=== PATIENT | male | born 1960 | race Caucasian/White ===

== ENCOUNTER → 2019-07-05 | Outpatient (CLI) | payer OTHER | LOC: M.CT 12:57 | DX: I10 Essential (primary) hypertension (principal); I25.10 Atherosclerotic heart disease of native coronary artery without angina pectoris ==

== ENCOUNTER → 2019-07-05 | Outpatient (CLI) | payer BC | LOC: M.RAD 13:06 | DX: M25.562 Pain in left knee (principal); G89.29 Other chronic pain ==

== ENCOUNTER 2020-09-14 11:05 | Inpatient (IN) | payer BC ==
[2020-09-14] VITALS (14 sets, daily range): BP systolic 92–140; BP diastolic 56–81
[~2020-09-14] VITALS: Ht 188 cm; Wt 128.8 kg
[2020-09-14] MEDS ORDERED: NORVASC5 MG PO (11:32)
[2020-09-14] MEDS ORDERED: LISINOPRIL20 MG PO (11:32)
[2020-09-14 11:49] LABS: ABSOLUTE LYMPHOCYTES 0.7 thou/uL (0.8-5.3); ABSOLUTE MONOCYTES 0.3 thou/uL (0.0-1.2); ABSOLUTE NEUTROPHILS 3.8 thou/uL (1.6-8.1); BASOPHILS 0.3 %; HEMATOCRIT 43.7 % (42.0-52.0); LYMPHOCYTES 13.5 %; MCH 32.1 pg (26.0-34.0); MCHC 34.4 g/dL (28.0-37.0); MCV 93.2 fL (80.0-100.0); MONOCYTES 6.8 %; MPV 8.2 fl. (7.2-11.1); NUCLEATED RBCS 0 /100WBC; PLATELET COUNT* 153 thou/uL (150-400); POLYS 79.4 %; RBC 4.69 mil/uL (4.50-6.00); RDW-CV 13.5 % (10.5-14.5); WBC 4.8 thou/uL (4.0-11.0)
[2020-09-14 11:53] LABS: BE -0.6 mmol/L (-2 to +3); PCO2 28.9 mmHg (35.0-45.0); PO2 63.4 mmHg (75.0-100.0); pH 7.488 (7.340-7.450)
[2020-09-14 11:58] LABS: CALCIUM 7.9 mg/dL (8.5-10.1); CREATININE 1.2 mg/dL (0.6-1.3); POTASSIUM 4.5 mmol/L (3.5-5.1)
[2020-09-14 12:10] LABS: ALBUMIN 2.8 g/dL (3.4-5.0); TOTAL BILIRUBIN 0.6 mg/dL (<0.1-1.0); TOTAL PROTEIN 7.5 g/dL (6.4-8.2)
--- NOTE | 2020-09-14 13:41 | EKG ---
[place] [address] ELECTROCARDIOGRAM REPORT Name: TANIA SIMON Room: [place] [address] [facility]#: [id number] Admission: 09/14/20 Attend Phys: Elisabeth Bustamante, Discharge: Date of : 64 Date of Service: 09/14/20 1137 Report #: [id number] THIS REPORT FOR: //name// [facility] ED Test Date: 2020-09-14 Test Time: 11:37:36 Pat Name: TANIA SIMON Department: Room: [facility] Gender: M First Sampler: LAURA : 1960 Requested By: Sri Peterson Order Number: [id number] MD: Jesse Landry Measurements Intervals [place] Rate: 99 P: 18 OR: 140 QRS: -117 QRSD: 134 T: 15 QT: 346 QTc: 444 Interpretive Statements Sinus rhythm RBBB and LAFB No previous ECG available for comparison Electronically Signed On 09-14-2020 13:40:58 CDT by Jesse Landry [email or web address] <ELECTRONICALLY SIGNED> By: Jesse Landry MD, [facility] 09/14/20 1340 1137 1137 Jesse Landry MD, [facility] /EPI
[2020-09-14 14:53] LABS: BE -3.2 mmol/L (-2 to +3); PCO2 30.5 mmHg (35.0-45.0); PO2 89.1 mmHg (75.0-100.0)
[2020-09-14 16:08] LABS: APTT 30.8 Seconds (25.0-31.3); PROTIME 10.6 Seconds (9.20-11.50)
[2020-09-15] VITALS (25 sets, daily range): BP systolic 88–133; BP diastolic 39–74
[2020-09-15 03:23] LABS: ABSOLUTE LYMPHOCYTES 0.6 thou/uL (0.8-5.3); ABSOLUTE MONOCYTES 0.2 thou/uL (0.0-1.2); BASOPHILS 0.3 %; HEMATOCRIT 42.8 % (42.0-52.0); HEMOGLOBIN 14.4 gm/dL (14.0-18.0); LYMPHOCYTES 14.6 %; MCH 31.7 pg (26.0-34.0); MCHC 33.6 g/dL (28.0-37.0); MCV 94.3 fL (80.0-100.0); MONOCYTES 6.3 %; MPV 9.1 fl. (7.2-11.1); NUCLEATED RBCS 0 /100WBC; PLATELET COUNT* 155 thou/uL (150-400); POLYS 78.8 %; RBC 4.54 mil/uL (4.50-6.00); RDW-CV 13.8 % (10.5-14.5); WBC 3.8 thou/uL (4.0-11.0)
[2020-09-15 03:41] LABS: ALBUMIN 2.5 g/dL (3.4-5.0); CALCIUM 7.6 mg/dL (8.5-10.1); CREATININE 1.1 mg/dL (0.6-1.3); POTASSIUM 4.7 mmol/L (3.5-5.1); TOTAL BILIRUBIN 0.5 mg/dL (<0.1-1.0); TOTAL PROTEIN 7.2 g/dL (6.4-8.2)
--- NOTE | 2020-09-15 09:56 | NUR ---
WOUND NURSE: PATIENT SEEN TO ADDRESS WOUND ON THE PLANTAR SURFACE OF THE LEFT GREAT TOE. MEASURES 1.0 X 0.7 X 1.0 CM. RED, NONGRANULATING TISSUE IN THE WOUND BED. SEROUSANGUINOUS DRAINAGE, SMALL AMOUNT. PERIWOUND TISSUE HEAVILY CALLOUSED. NO PERIWOUND REDNESS, WARMTH, OR INDURATION. PATIENT STATES WOUND STARTED THE RESULT OF A ROCK IN HIS SHOE. PATIENT INSTRUCTED ON MEASURES TO PROMOTE HEALING AND PREVENT COMPLICATIONS WITH GOOD UNDERSTANDING ACHIEVED.
--- NOTE | 2020-09-15 15:07 | 2DMMODE ---
[place] [address] 2 D/M-MODE ECHOCARDIOGRAM Name: TANIA SIMON Room: 001[facility] IN [facility]#: [id number] Admission: 09/14/20 Attend Phys: Elisabeth Bustamante, Discharge: Date of : 64 Date of Service: 09/15/20 1507 Report #: [id number] THIS REPORT FOR: cc: Garrett Casiano Adam J DO Biggs, F. Douglas MD [facility] ~ APPROVED REPORT Study performed: 09/15/2020 10:36:19 EXAM: Comprehensive 2D, Doppler, and color-flow Echocardiogram Patient Location: In-Patient Room #: 001 Status: routine BSA: 2.71 HR: 78 bpm BP: 110/65 mmHg Rhythm: NSR Other Information Study Quality: Good Indications Dyspnea 2D Dimensions IVSd: 14.42 (7-11mm) LVOT Diam: 22.15 (18-24mm) LVDd: 51.63 mm PWd: 11.39 (7-11mm) Ascending Ao: 34.94 (22-36mm) LVDs: 28.74 (25-40mm) Aortic Root: 36.40 mm Volumes Left Atrial Volume (Systole) LA ESV Index: 20.70 mL/m2 Aortic Valve AoV Peak Morris.: 1.30 m/s AO Peak Gr.: 6.71 mmHg LVOT Max P.14 mmHg AO Mean Gr.: 3.70 mmHg LVOT Mean P.75 mmHg LVOT Max V: 1.24 m/s AO V2 VTI: 24.39 cm LVOT Mean V: 0.75 m/s JENI (VTI): 3.85 cm2 LVOT V1 VTI: 24.37 [place] [address] 2 D/M-MODE ECHOCARDIOGRAM Name: TANIA SIMON Room: [address] IN ..#: [id number] Admission: 09/14/20 Attend Phys: Elisabeth Bustamante, Discharge: Date of : 64 Date of Service: 09/15/20 1507 Report #: [id number] Mitral Valve E/A Ratio: 1.81 MV Decel. Time: 169.90 ms MV E Max Morris.: 0.88 m/s MV PHT: 49.27 ms MVA (PHT): 4.47 cm2 TDI E/Lateral E': 6.29 E/Medial E': 6.77 Medial E' Morris.: 0.13 m/s Lateral E' Morris.: 0.14 m/s Pulmonary Valve PV Peak Morris.: 0.85 m/s PV Peak Gr.: 2.87 mmHg Tricuspid Valve RAP Estimate: 5.00 mmHg TR Peak Gr.: 28.53 mmHg RVSP: 33.00 mmHg PA Pressure: 33.00 mmHg Left Ventricle The left ventricle is normal size. There is normal LV segmental wall motion. Mild concentric left ventricular hypertrophy. Left ventricular systolic function is normal. The left ventricular ejection fraction is within the normal range. LVEF is 55-60%. The left ventricular diastolic function is normal. Right Ventricle Right ventricle is dilated. The right ventricular systolic function is normal. Atria The left atrium size is normal. Right atrium is dilated. Aortic Valve The aortic valve is normal in structure. No aortic regurgitation is present. There is no aortic valvular stenosis. Mitral Valve The mitral valve is normal in structure. There is no mitral valve regurgitation noted. No evidence of mitral valve stenosis. Tricuspid Valve The tricuspid valve is normal in structure. Trace tricuspid regurgitation. [place] [address] 2 D/M-MODE ECHOCARDIOGRAM Name: TANIA SIMON Isi Room: [address] IN [facility]#: [id number] Admission: 09/14/20 Attend Phys: Elisabeth Bustamante, Discharge: Date of : 64 Date of Service: 09/15/20 1507 Report #: [id number] Pulmonic Valve The pulmonary valve is normal in structure. There is no pulmonic valvular regurgitation. Great Vessels The aortic root is normal in size. IVC is normal in size and collapses >50% with inspiration. Pericardium There is no pericardial effusion. <Conclusion> LVEF is 55-60%. The left ventricular diastolic function is normal. Mild concentric left ventricular hypertrophy. The left ventricle is normal size. There is normal LV segmental wall motion. The aortic valve is normal in structure. The mitral valve is normal in structure. Trace tricuspid regurgitation. Mild pulmonary hypertension. <ELECTRONICALLY SIGNED> By: Orly Robles MD, [facility] 09/15/20 1507 1507 1507 Orly Robles MD, FACC /INF
--- NOTE | 2020-09-15 15:35 | NUR ---
cm s/w with pt's , as pt is on covid isolation precautions. pt lives home with . pt is active and employeed. pt is independent with adls. pt covid "symptoms" presented "a week ago." pt has a cpap machine at home; however, pt's indicated, "has not used it in a long time." pt is currently on bipap 100% fio2. pt has no hx with or snf. pt had knee sx 2 to 3 weeks ago.
[2020-09-16] VITALS (24 sets, daily range): BP systolic 104–136; BP diastolic 51–79
[2020-09-16 03:39] LABS: HEMATOCRIT 41.7 % (42.0-52.0); HEMOGLOBIN 14.3 gm/dL (14.0-18.0); MCHC 34.2 g/dL (28.0-37.0); MCV 93.5 fL (80.0-100.0); MPV 8.6 fl. (7.2-11.1); NUCLEATED RBCS 0 /100WBC; PLATELET COUNT* 215 thou/uL (150-400); RBC 4.46 mil/uL (4.50-6.00); RDW-CV 13.6 % (10.5-14.5); WBC 8.1 thou/uL (4.0-11.0)
[2020-09-16 03:52] LABS: ALBUMIN 2.3 g/dL (3.4-5.0); CALCIUM 8.6 mg/dL (8.5-10.1); CREATININE 1.3 mg/dL (0.6-1.3); MAGNESIUM 2.1 mg/dL (1.8-2.4); POTASSIUM 4.3 mmol/L (3.5-5.1); TOTAL BILIRUBIN 0.5 mg/dL (<0.1-1.0); TOTAL PROTEIN 6.6 g/dL (6.4-8.2)
[2020-09-16 06:19] LABS: ABSOLUTE LYMPHOCYTES 1.1 thou/uL (0.8-5.3); ABSOLUTE MONOCYTES 0.2 thou/uL (0.0-1.2); ABSOLUTE NEUTROPHILS 6.8 thou/uL (1.6-8.1); PLATELET ESTIMATE ADEQUATE
[2020-09-16 06:20] LABS: ANISOCYTOSIS 1+; POIKILOCYTOSIS 1+
[2020-09-16 07:09] LABS: GLYCOHEMOGLOBIN (HGB A1C) 6.6 % (4.8-5.6)
--- NOTE | 2020-09-16 14:50 | NUR ---
ICU Rounds: Completed DPOA paperwork for patient with nursing. Patient designated his (Suzette) as DPOA. Patient currently uses bipap (FiO2 95%) and 100% heated high flow interchangeably. Possible need for intubation which is why DPOA paperwork was completed. Copy on chart and in patient's room. Continued steroids and abx. 1 of 4 doses of remdesevir given. 2nd dose to be given today. updated on plan of care. asked for an update on if patient is prediabetic or has Type 2 DM. Nursing to reach out to for further discussion with doctor. CM to continue to follow
[2020-09-16 15:31] LABS: CALCIUM 8.7 mg/dL (8.5-10.1); CREATININE 1.3 mg/dL (0.6-1.3); POTASSIUM 4.8 mmol/L (3.5-5.1)
[2020-09-17] VITALS (24 sets, daily range): BP systolic 102–140; BP diastolic 43–85
[2020-09-17 03:37] LABS: ABSOLUTE LYMPHOCYTES 0.6 thou/uL (0.8-5.3); ABSOLUTE MONOCYTES 0.6 thou/uL (0.0-1.2); ABSOLUTE NEUTROPHILS 10.6 thou/uL (1.6-8.1); BASOPHILS 0.2 %; HEMATOCRIT 41.1 % (42.0-52.0); HEMOGLOBIN 13.6 gm/dL (14.0-18.0); LYMPHOCYTES 4.8 %; MCH 31.2 pg (26.0-34.0); MCHC 33.2 g/dL (28.0-37.0); MONOCYTES 5.2 %; MPV 8.7 fl. (7.2-11.1); NUCLEATED RBCS 0 /100WBC; PLATELET COUNT* 235 thou/uL (150-400); POLYS 89.8 %; RBC 4.37 mil/uL (4.50-6.00); RDW-CV 13.6 % (10.5-14.5); WBC 11.8 thou/uL (4.0-11.0)
[2020-09-17 03:53] LABS: ALBUMIN 2.4 g/dL (3.4-5.0); CALCIUM 8.6 mg/dL (8.5-10.1); CREATININE 1.2 mg/dL (0.6-1.3); MAGNESIUM 2.2 mg/dL (1.8-2.4); POTASSIUM 4.6 mmol/L (3.5-5.1); TOTAL BILIRUBIN 0.5 mg/dL (<0.1-1.0); TOTAL PROTEIN 6.4 g/dL (6.4-8.2)
--- NOTE | 2020-09-17 10:21 | NUR ---
ICU Rounds: Patient currently on bipap (FiO2 80%). Continued steroids and abx. Patient to recieve 3rd dose of remdesevir today (4 total). DPOA paperwork completed yesterday.
[2020-09-17 17:15] LABS: CREATININE 1.3 mg/dL (0.6-1.3); POTASSIUM 4.2 mmol/L (3.5-5.1)
--- NOTE | 2020-09-17 18:00 | NUR ---
UP TO CHAIR SINCE 829. TOLERATING FAIR. DESATS WITH URINATION AND EATING ON HHF BUT REBOUNDS QUICKLY. EATING WELL. STATES HE FEELS BETTER. GREAT UOP AFTER ALBUMIN AND LASIX
[2020-09-18] VITALS (23 sets, daily range): BP systolic 115–155; BP diastolic 53–86
--- NOTE | 2020-09-18 06:38 | NUR ---
ASSUMED PATIENT CARE AT 1900. ASSESSMENTS COMPLETED CHARTED. CARDIAC MONITORING IN PLACE. HOURLY ROUNDING IN PLACE FOR PATIENT SAFETY. FALL PRECAUTIONS IN PLACE FOR PATIENT SAFETY. BED LOCKED AND IN LOWEST POSITION. CLWR.
--- NOTE | 2020-09-18 08:38 | NUR ---
ICU Rounds: Patient remains on bipap (FiO2 100%). Continued abx and steroids. 3 of 9 doses of remdesevir given. 4th dose to be given today. Patient will stay through the weekened. CM to continue to follow for safe dc planning
[2020-09-18 09:37] LABS: CALCIUM 8.8 mg/dL (8.5-10.1); CREATININE 1.1 mg/dL (0.6-1.3); POTASSIUM 4.2 mmol/L (3.5-5.1)
--- NOTE | 2020-09-18 10:25 | CON ---
[address] [address] CONSULTATION Name: TANIA SIMON Room: [address] IN .R.#: [id number] Admission: 09/14/20 Attend Phys: Elisabeth Bustamante MD Discharge: Date of : 64 Report #: [id number] THIS REPORT FOR: cc: Garrett Casiano Adam J DO Pervez, Adeel MD ~ DATE OF CONSULTATION: 09/14/2020 REQUESTING PHYSICIAN: Elisabeth Bustamante MD INDICATION FOR CONSULTATION: Acute hypoxemic respiratory failure secondary to COVID-19. HISTORY OF PRESENT ILLNESS: This is a 59-year-old gentleman with past medical history as mentioned below, this does include a history of morbid obesity and does have a CPAP at home. The patient also had a recent knee surgery. He is now admitted with COVID-19. He has not been vaccinated. He reports severe shortness of breath. He has also been coughing up significant amounts of yellow sputum. There is no chest pain. He does not describe upper respiratory complaints. He does have swelling of lower extremities. He has had disturbed sleep at night as well as sleepiness during the day. These complaints are at baseline. REVIEW OF SYSTEMS: The patient's review of systems for 12 points is negative except as mentioned above. PAST MEDICAL HISTORY: Morbid obesity, obstructive sleep apnea on a CPAP at home, hypertension, prediabetes, left knee replacement, right ankle surgery, has had recent surgery on the knee. CURRENT MEDICATIONS: List in [facility] reviewed. HOME MEDICATIONS: List in [employer] reviewed. SOCIAL HISTORY: No known history of smoking, ethanol abuse, or drug abuse. FAMILY HISTORY: No pertinent family history. PHYSICAL EXAMINATION: GENERAL: He is alert, awake and oriented, does appear to be short of breath at rest. VITAL SIGNS: He is on a BiPAP of 10/5 with a FIO2 of 100%. His O2 saturation has come up to 100%, has a pulse rate 82 and a blood pressure 126/69. He is saturating in the high 90s, but he is tachypneic, [place] [address] CONSULTATION Name: TANIA SIMON Room: [address] IN [facility]#: [id number] Admission: 09/14/20 Attend Phys: Elisabeth Bustamante MD Discharge: Date of : 64 Report #: [id number] high 20s. HEENT: Head is normocephalic and atraumatic. NECK: Does not show raised JVP. CHEST: Breath sounds are bilaterally equal, decreased, expirations are prolonged. There are loud inspiratory as well as expiratory wheezes. HEART: Regular, no murmur. ABDOMEN: Soft and nontender. EXTREMITIES: Lower extremities, 2+ edema, more on the left than the right. There is some vague calf tenderness. SKIN: Dry and intact. NEUROLOGIC: Moves all extremities bilaterally equally and spontaneously with no focal deficit identified. LABORATORY DATA: The patient's ABGs, lab work as well as chest x-ray in [facility] reviewed. ASSESSMENT AND PLAN: 1. Acute hypoxemic respiratory failure and acute respiratory distress syndrome secondary to COVID-19. Keep on BiPAP while asleep and as needed. I adjusted BiPAP settings, may be on heated high-flow nasal cannula while awake as tolerated. 2. COVID-19. Agree with dexamethasone ,Actemra as well as remdesivir. Also agree with convalescent plasma. We will plan to give a second dose of convalescent plasma tomorrow. 3. Bronchospasm. He appears to be actively bronchospastic. Therefore, we will go ahead and give an additional dose of Solu-Medrol 125 mg now. Also, start DuoNeb q.4 hours. 4. Obstructive sleep apnea, see discussion above. 5. Pulmonary infiltrates. He has recently been in the hospital. Also, he has been bringing up yellow sputum. Therefore, we will broaden antibiotic coverage to doxycycline and ceftriaxone. 6. Pedal edema/evaluation for thromboembolic phenomena. It will certainly be possible that he has deep venous thrombosis or pulmonary emboli. The patient, however, is too unstable to be transported for CTA chest. We will, however, do venous Dopplers. We will also do an echo pending further evaluation until he is stable for CT, we will go ahead and fully anticoagulate him with Lovenox. 7. Fluid overload. Discontinue IV fluids, one dose of Lasix with convalescent plasma today. 8. Prediabetes/mild hyperglycemia. We will start insulin sliding scale. 9. Gastrointestinal prophylaxis, on Protonix. 10. Clostridium difficile prophylaxis. We will go ahead and start Lactinex. The patient is critically ill at this time. [address] [place] [address] CONSULTATION Name: TANIA SIMON Room: M.001-P ADM IN M.R.#: [id number] Admission: 09/14/20 Attend Phys: Elisabeth Bustamante MD Discharge: Date of : 64 Report #: [id number] Total time spent providing critical care to this patient today exceeds 43 minutes. <ELECTRONICALLY SIGNED> By: Mor Martinez MD 09/18/20 1025 1757 1919Aarnold Martinez MD /nt
[2020-09-19] VITALS (24 sets, daily range): BP systolic 115–182; BP diastolic 70–100
[2020-09-19 03:25] LABS: ABSOLUTE LYMPHOCYTES 0.5 thou/uL (0.8-5.3); ABSOLUTE MONOCYTES 0.6 thou/uL (0.0-1.2); ABSOLUTE NEUTROPHILS 14.3 thou/uL (1.6-8.1); BASOPHILS 0.3 %; HEMATOCRIT 43.6 % (42.0-52.0); HEMOGLOBIN 14.4 gm/dL (14.0-18.0); LYMPHOCYTES 3.4 %; MCH 30.7 pg (26.0-34.0); MCV 93.1 fL (80.0-100.0); MONOCYTES 3.9 %; MPV 8.7 fl. (7.2-11.1); NUCLEATED RBCS 0 /100WBC; PLATELET COUNT* 257 thou/uL (150-400); POLYS 92.4 %; RBC 4.68 mil/uL (4.50-6.00); RDW-CV 13.6 % (10.5-14.5); WBC 15.5 thou/uL (4.0-11.0)
[2020-09-19 03:42] LABS: ALBUMIN 2.8 g/dL (3.4-5.0); CALCIUM 8.9 mg/dL (8.5-10.1); MAGNESIUM 2.2 mg/dL (1.8-2.4); TOTAL PROTEIN 6.4 g/dL (6.4-8.2)
[2020-09-20] VITALS (24 sets, daily range): BP systolic 116–156; BP diastolic 57–93
[2020-09-20 02:51] LABS: HEMATOCRIT 43.9 % (42.0-52.0); HEMOGLOBIN 14.4 gm/dL (14.0-18.0); MCH 30.4 pg (26.0-34.0); MCHC 32.8 g/dL (28.0-37.0)
[2020-09-20 03:16] LABS: ALBUMIN 2.9 g/dL (3.4-5.0); CALCIUM 8.9 mg/dL (8.5-10.1); CREATININE 1.1 mg/dL (0.6-1.3); MAGNESIUM 2.1 mg/dL (1.8-2.4); POTASSIUM 4.7 mmol/L (3.5-5.1); TOTAL BILIRUBIN 1.1 mg/dL (<0.1-1.0); TOTAL PROTEIN 6.4 g/dL (6.4-8.2)
[2020-09-20 03:17] LABS: MCV 92.9 fL (80.0-100.0); MPV 8.6 fl. (7.2-11.1); NUCLEATED RBCS 0 /100WBC; PLATELET COUNT* 249 thou/uL (150-400); RBC 4.72 mil/uL (4.50-6.00); RDW-CV 13.6 % (10.5-14.5); WBC 13.2 thou/uL (4.0-11.0)
[2020-09-20 07:27] LABS: ABSOLUTE EOSINOPHILS 0.1 thou/uL (0.0-0.7); ABSOLUTE LYMPHOCYTES 0.1 thou/uL (0.8-5.3); ABSOLUTE MONOCYTES 0.4 thou/uL (0.0-1.2); ABSOLUTE NEUTROPHILS 12.5 thou/uL (1.6-8.1); ANISOCYTOSIS 1+; PLATELET ESTIMATE ADEQUATE; POIKILOCYTOSIS 1+
[2020-09-20 22:49] LABS: BE -2.4 mmol/L (-2 to +3); PCO2 34.3 mmHg (35.0-45.0); PO2 60.6 mmHg (75.0-100.0); pH 7.411 (7.340-7.450)
[2020-09-21] VITALS (24 sets, daily range): BP systolic 110–151; BP diastolic 61–89
[2020-09-21 03:33] LABS: ABSOLUTE EOSINOPHILS 0.1 thou/uL (0.0-0.7); ABSOLUTE LYMPHOCYTES 0.4 thou/uL (0.8-5.3); ABSOLUTE MONOCYTES 0.4 thou/uL (0.0-1.2); ABSOLUTE NEUTROPHILS 15.5 thou/uL (1.6-8.1); BASOPHILS 0.1 %; EOSINOPHILS 0.7 %; HEMATOCRIT 46.2 % (42.0-52.0); HEMOGLOBIN 15.2 gm/dL (14.0-18.0); LYMPHOCYTES 2.5 %; MCH 30.4 pg (26.0-34.0); MCHC 32.9 g/dL (28.0-37.0); MCV 92.5 fL (80.0-100.0); MONOCYTES 2.5 %; MPV 8.5 fl. (7.2-11.1); NUCLEATED RBCS 0 /100WBC; PLATELET COUNT* 303 thou/uL (150-400); POLYS 94.2 %; RBC 4.99 mil/uL (4.50-6.00); RDW-CV 13.6 % (10.5-14.5); WBC 16.4 thou/uL (4.0-11.0)
[2020-09-21 03:50] LABS: ALBUMIN 3.2 g/dL (3.4-5.0); CALCIUM 9.1 mg/dL (8.5-10.1); CREATININE 1.3 mg/dL (0.6-1.3); POTASSIUM 4.5 mmol/L (3.5-5.1); TOTAL PROTEIN 7.1 g/dL (6.4-8.2)
--- NOTE | 2020-09-21 13:15 | NUR ---
ICU Rounds: Continued bipap at HS and HHF during the day when tolerated. Patient desated today while on HHF eating. 7th dose of remdesevir to be given today (9 total). Continued steroids.
--- NOTE | 2020-09-21 18:44 | NUR ---
ASSUMED CARE AT 0700. ALL ASSESSMENTS COMPLETED CHARTED. PT BIPAP EXCEPT FOR MEALS WITH HHF. BP WNL. UPDATED ON PHONE. NO BM. HIGH FALL RISK PRECAUTIONS IN PLACE. CARDIAC MONITORING IN PLACE. A&O X4.
[2020-09-22] VITALS (20 sets, daily range): BP systolic 65–142; BP diastolic 41–119
[2020-09-22 04:22] LABS: CALCIUM 8.7 mg/dL (8.5-10.1); POTASSIUM 4.8 mmol/L (3.5-5.1); TOTAL BILIRUBIN 0.9 mg/dL (<0.1-1.0); TOTAL PROTEIN 6.6 g/dL (6.4-8.2)
[2020-09-22 04:28] LABS: HEMATOCRIT 44.5 % (42.0-52.0); MCH 31.5 pg (26.0-34.0); MCHC 33.8 g/dL (28.0-37.0); MCV 93.3 fL (80.0-100.0); RBC 4.76 mil/uL (4.50-6.00); RDW-CV 13.3 % (10.5-14.5); WBC 18.1 thou/uL (4.0-11.0)
--- NOTE | 2020-09-22 14:16 | NUR ---
ICU Rounds: Patient is currently on HHF (100% FiO2 and 55L) and wearing a nonrebreather to maintain sats. Patient to recieve 8th dose of remdesevir today (9 total). Continued steroids.
--- NOTE | 2020-09-22 18:11 | NUR ---
RESUMED CARE AT 0700. PT TOLORATED HHF WITH NON BREATHER THROUGHOUT MOST OF SHIFT. LASIX AND ALBUMIN GIVEN. 2000 URINE OUTPUT. 1 BM. CARDIAC MONITORING IN PLACE; HIGH FALL RISK PRECAUTIONS IN PLACE FOR PATIENT'S SAFETY. PT SAT IN RECLINER MOST OF SHIFT.
[2020-09-23] VITALS (23 sets, daily range): BP systolic 98–144; BP diastolic 37–90
[2020-09-23 03:45] LABS: CALCIUM 8.6 mg/dL (8.5-10.1); CREATININE 1.1 mg/dL (0.6-1.3); POTASSIUM 4.5 mmol/L (3.5-5.1)
[2020-09-23 04:35] LABS: HEMATOCRIT 43.7 % (42.0-52.0); HEMOGLOBIN 15.1 gm/dL (14.0-18.0); MCH 31.7 pg (26.0-34.0); MCHC 34.4 g/dL (28.0-37.0); MCV 92.2 fL (80.0-100.0); MPV 8.7 fl. (7.2-11.1); RBC 4.74 mil/uL (4.50-6.00); RDW-CV 13.5 % (10.5-14.5); WBC 18.5 thou/uL (4.0-11.0)
--- NOTE | 2020-09-23 07:59 | NUR ---
ICU Rounds: Patient wore bipap (FiO2 90%) overnight. HF during the day and non-rebreather added if needed. Continued steroids. 9th and final dose of remdesevir to be given today. Checked in with Suzette. Nursing advised that she inquired about patient portal and how to obtain access. CM will check with patient access to obtain link for patient portal. Suzette asked about if she could shredder picker the patients dirty clothes and bring clean clothes. Advised her that CM Dir will check with management for protocols. Suzette also asked about BP meds for patient. Med rec shows amlodipine and lisinopril. CM Dir will check with nursing/doctor to inquire about home meds. Last inquiry was about sending patients job a positive covid result for his job to approve his time off. Suzette to obtain more information from patient's job and follow up with CM Dir.
--- NOTE | 2020-09-23 15:50 | NUR ---
WOUND NURSE: PATIENT SEEN FOR FOLLOW UP ASSESSMENT PERTAINING TO DFUS ON BILATERAL GREAT TOES. PRIOR RIGHT GREAT TOE WOUND WAS COVERED BY A CALLOUS, CALLOUS WAS PAIRED BY DR. TARANGO. RIGHT GREAT TOE CURRENTLY MEASURES 0.3 X 0.5 X 0.8 CM. THE TOE CONTAINS LIGHT PINK GRANULATION TISSUE. THE LEFT GREAT TOES MEASURES 1.2 X 0.8 X 0.8 CM. WOUND BED CONTAINS PALE PINK GRANULATION TISSUE. THERE IS A SMALL AMOUNT OF SEROUS DRAINAGE NOTED. THERE IS NO PERIWOUND REDNESS WARMTH, OR INDURATION PRESENT. WOUND CARE WAS PROVIDED TO EACH PRESCRIBED. PATIENT WAS REINSTRUCTED ON MEASURES TO PROMOTE HEALING AND PREVENT COMPLICATIONS. STATES HE UNDERSTANDS.
[2020-09-24] VITALS (20 sets, daily range): BP systolic 105–132; BP diastolic 63–97
[2020-09-24 03:25] LABS: HEMATOCRIT 46.7 % (42.0-52.0); HEMOGLOBIN 15.1 gm/dL (14.0-18.0); MCH 30.2 pg (26.0-34.0); MCHC 32.4 g/dL (28.0-37.0); MCV 93.4 fL (80.0-100.0); MPV 8.5 fl. (7.2-11.1); NUCLEATED RBCS 0 /100WBC; PLATELET COUNT* 266 thou/uL (150-400); RDW-CV 13.7 % (10.5-14.5); WBC 21.3 thou/uL (4.0-11.0)
[2020-09-24 03:54] LABS: ALBUMIN 3.2 g/dL (3.4-5.0); CALCIUM 8.8 mg/dL (8.5-10.1); CREATININE 1.1 mg/dL (0.6-1.3); MAGNESIUM 2.4 mg/dL (1.8-2.4); POTASSIUM 4.7 mmol/L (3.5-5.1); TOTAL BILIRUBIN 0.8 mg/dL (<0.1-1.0); TOTAL PROTEIN 6.2 g/dL (6.4-8.2)
[2020-09-24 04:22] LABS: ABSOLUTE EOSINOPHILS 0.4 thou/uL (0.0-0.7); ABSOLUTE LYMPHOCYTES 0.6 thou/uL (0.8-5.3); ABSOLUTE MONOCYTES 0.4 thou/uL (0.0-1.2); ABSOLUTE NEUTROPHILS 19.8 thou/uL (1.6-8.1); PLATELET ESTIMATE ADEQUATE; TOXIC GRANULATION 2+
--- NOTE | 2020-09-24 06:04 | NUR ---
PT SLEPT MOST OF SHIFT. ASSESSMENT DOCUMENTED. MEDS GIVEN PER E-MAR. IV PATENT. ABX INFUSED. PT VOIDING PER URINAL. ONE BOWEL MOVEMENT THIS SHIFT. PT ON BIPAP THIS SHIFT, TOLERATING AT 95% FIO2. PT ABLE TO MAKE NEEDS KNOWN.
[2020-09-25] VITALS (12 sets, daily range): BP systolic 107–148; BP diastolic 49–96
--- NOTE | 2020-09-25 04:28 | NUR ---
ASSUMED CARE AT 1910H, ON HEATED HIFLOW CONNECTED TO BIPAP AND TOLERATED. SEEN ON RECLAINING CHAIR DOING HIS BREATHING EXERSICE. NO FEVER AND NO DISTRESS NOTED. BACK TO BED AND ON HIS BIPAP AT 100%. CONTINUE MONITORING AND TOWARDS GOALS.
[2020-09-25 09:52] LABS: ABSOLUTE EOSINOPHILS 0.1 thou/uL (0.0-0.7); ABSOLUTE LYMPHOCYTES 0.8 thou/uL (0.8-5.3); ABSOLUTE MONOCYTES 0.6 thou/uL (0.0-1.2); ABSOLUTE NEUTROPHILS 23.6 thou/uL (1.6-8.1); BASOPHILS 0.1 %; EOSINOPHILS 0.3 %; HEMOGLOBIN 15.8 gm/dL (14.0-18.0); LYMPHOCYTES 3.1 %; MCH 30.8 pg (26.0-34.0); MCHC 33.5 g/dL (28.0-37.0); MCV 91.8 fL (80.0-100.0); MONOCYTES 2.4 %; MPV 8.8 fl. (7.2-11.1); NUCLEATED RBCS 0 /100WBC; PLATELET COUNT* 275 thou/uL (150-400); POLYS 94.1 %; RBC 5.12 mil/uL (4.50-6.00); RDW-CV 13.6 % (10.5-14.5)
[2020-09-25 10:14] LABS: ALBUMIN 3.3 g/dL (3.4-5.0); CALCIUM 9.2 mg/dL (8.5-10.1); MAGNESIUM 2.5 mg/dL (1.8-2.4); POTASSIUM 4.5 mmol/L (3.5-5.1); TOTAL BILIRUBIN 0.9 mg/dL (<0.1-1.0)
--- NOTE | 2020-09-25 14:02 | NUR ---
ICU Rounds: Patient currently on bipap (FiO2 90%). Patient continues to be hypoxic. Continued abx and steroids. Spoke to Suzette and advised her that she can bring clothes for patient but cannot remove clothes while patient is in COVID isolation. Suzette will send another family member since she is currently positive. Advised her that BP meds have not been given due to there not being a need for them. BP has been stable. Suzette provided email address to send COVID results to for patients job. CM Dir will reach out to Olya Hoang ([email or web address]). Suzette also asked about eye patch for patient. Will check with nursing to see if eye patch is in rooom and if not will send with belongings. Patient staying through the weekend.
--- NOTE | 2020-09-25 15:54 | NUR ---
WOUND NURSE: PATIENT'S NURSE PROVIDED WITH AN OPTIFOAM GENTLE TO OFFLOAD BRIDGE OF NOSE WHEN WEARING BIPAP MASK.
[2020-09-26] VITALS (19 sets, daily range): BP systolic 87–137; BP diastolic 53–84
[2020-09-26 08:46] LABS: ABSOLUTE LYMPHOCYTES 0.8 thou/uL (0.8-5.3); ABSOLUTE MONOCYTES 0.9 thou/uL (0.0-1.2); ABSOLUTE NEUTROPHILS 20.9 thou/uL (1.6-8.1); BASOPHILS 0.2 %; EOSINOPHILS 0.1 %; HEMATOCRIT 47.4 % (42.0-52.0); HEMOGLOBIN 15.9 gm/dL (14.0-18.0); LYMPHOCYTES 3.5 %; MCHC 33.5 g/dL (28.0-37.0); MCV 92.4 fL (80.0-100.0); MPV 8.7 fl. (7.2-11.1); NUCLEATED RBCS 0 /100WBC; PLATELET COUNT* 253 thou/uL (150-400); POLYS 92.2 %; RBC 5.13 mil/uL (4.50-6.00); RDW-CV 13.7 % (10.5-14.5); WBC 22.6 thou/uL (4.0-11.0)
[2020-09-26 09:03] LABS: ALBUMIN 3.1 g/dL (3.4-5.0); CALCIUM 8.9 mg/dL (8.5-10.1); POTASSIUM 4.6 mmol/L (3.5-5.1); TOTAL PROTEIN 6.6 g/dL (6.4-8.2)
[2020-09-26 12:43] LABS: URINE BILIRUBIN NEGATIVE (Negative); URINE BLOOD NEGATIVE (Negative); URINE CLARITY CLEAR; URINE COLOR YELLOW; URINE GLUCOSE-RANDOM NEGATIVE (Negative); URINE KETONES NEGATIVE (Negative); URINE LEUKOCYTES NEGATIVE (Negative); URINE NITRITE NEGATIVE (Negative); URINE PROTEIN NEGATIVE (Negative); URINE SPECIFIC GRAVITY 1.025 (1.005-1.030); URINE UROBILINOGEN 0.2 E.U./dl (0.2-1.0)
[2020-09-27] VITALS (20 sets, daily range): BP systolic 113–154; BP diastolic 46–88
[2020-09-27 04:55] LABS: HEMATOCRIT 45.8 % (42.0-52.0); HEMOGLOBIN 15.5 gm/dL (14.0-18.0); MCH 30.9 pg (26.0-34.0); MCHC 33.8 g/dL (28.0-37.0); MCV 91.7 fL (80.0-100.0); MPV 8.4 fl. (7.2-11.1); NUCLEATED RBCS 0 /100WBC; PLATELET COUNT* 233 thou/uL (150-400); RBC 4.99 mil/uL (4.50-6.00); RDW-CV 13.8 % (10.5-14.5); WBC 20.7 thou/uL (4.0-11.0)
[2020-09-27 05:16] LABS: ALBUMIN 2.9 g/dL (3.4-5.0); CALCIUM 8.3 mg/dL (8.5-10.1); CREATININE 1.1 mg/dL (0.6-1.3); POTASSIUM 4.7 mmol/L (3.5-5.1); TOTAL BILIRUBIN 0.9 mg/dL (<0.1-1.0); TOTAL PROTEIN 6.2 g/dL (6.4-8.2)
[2020-09-27 06:53] LABS: ABSOLUTE LYMPHOCYTES 0.8 thou/uL (0.8-5.3); ABSOLUTE NEUTROPHILS 18.8 thou/uL (1.6-8.1); ATYPICAL LYMPHS 1 %
[2020-09-27 06:54] LABS: PLATELET ESTIMATE ADEQUATE
--- NOTE | 2020-09-27 07:42 | NUR ---
NO ACUTE CHANGES ON THIS SHIFT. PT DENIES COMPLAINTS OF PAIN. ASSESSMENT COMPLETED CHARTED. ROUNDING COMPLETED AND ALL NEEDS MET.
[2020-09-28 02:30] VITALS: BP 131/75
[2020-09-28 04:56] VITALS: BP 114/61
[2020-09-28 05:32] LABS: ABSOLUTE BASOPHILS 0.2 thou/uL (0.0-0.2); ABSOLUTE LYMPHOCYTES 0.8 thou/uL (0.8-5.3); ABSOLUTE MONOCYTES 0.4 thou/uL (0.0-1.2); ABSOLUTE NEUTROPHILS 20.1 thou/uL (1.6-8.1); BASOPHILS 0.7 %; EOSINOPHILS 0.1 %; HEMATOCRIT 46.9 % (42.0-52.0); HEMOGLOBIN 15.4 gm/dL (14.0-18.0); LYMPHOCYTES 3.6 %; MCH 30.2 pg (26.0-34.0); MCHC 32.8 g/dL (28.0-37.0); MCV 92.2 fL (80.0-100.0); MPV 8.4 fl. (7.2-11.1); NUCLEATED RBCS 0 /100WBC; PLATELET COUNT* 222 thou/uL (150-400); POLYS 93.6 %; RBC 5.09 mil/uL (4.50-6.00); RDW-CV 13.9 % (10.5-14.5); WBC 21.5 thou/uL (4.0-11.0)
--- NOTE | 2020-09-28 05:45 | NUR ---
PT TRANSFER FROM ICU LAST NIGHT. AOX4, PLEASANT. TELE SR BBB PACS AT TIMES. RAC SL. WEARING BIPAP WITH HHF PER RT OVERNIGHT. USING URINAL TO VOID, ABLE TO STAND AT BEDSIDE, MARTÍNEZ. SATS 90-93% OVERNIGHT. BLE EDEMA, GREAT TOE DIABETIC ULCER DRSGS CDI. ABLE TO USE CALL LITE AND MAKE NEEDS KNOWN.
[2020-09-28 05:58] LABS: ALBUMIN 2.9 g/dL (3.4-5.0); CALCIUM 8.5 mg/dL (8.5-10.1); CREATININE 1.1 mg/dL (0.6-1.3); POTASSIUM 4.9 mmol/L (3.5-5.1); TOTAL BILIRUBIN 0.9 mg/dL (<0.1-1.0); TOTAL PROTEIN 6.1 g/dL (6.4-8.2)
[2020-09-28 08:24] VITALS: BP 111/78
--- NOTE | 2020-09-28 15:17 | NUR ---
Covid positive. Anticipate dc in a few days. On bipap 60L, fio2 100%.
[2020-09-28 16:00] VITALS: BP 119/80
--- NOTE | 2020-09-28 18:50 | NUR ---
Pt up in chair for most of shift today. Remains on HHF/BIPAP combo; O2 sats low 90s. Pleasant and cooperative. No complaints. VSS. Will continue to monitor.
[2020-09-28 21:30] VITALS: BP 132/75
[2020-09-29] VITALS: BP 145/71
[2020-09-29 04:00] VITALS: BP 123/77
--- NOTE | 2020-09-29 04:53 | NUR ---
PT AO X4 SITTING IN CHAIR AT TIME OF ASSESSMENT, HE STATES HE HAS BEEN IN CHAIR ALL DAY AND IS READY TO GO TO BED. VSS, PT ON HIGHFLOW NC, HE USED BIPAP AT HS WITH HIGH FLOW BLED THROUGH IT. PT HAS BEEN SA WITH BBB. HE SLEPT WELL AND WAS ENCOURAGED TO PRONE BUT DUE TO HIS HEIGHT THIS MAY BE A BIT DIFFICULT IN THE BED. PT DENEID PAIN, TOOK ALL MEDS PER EMAR. CALL LIGHT WITHIN REACH.
[2020-09-29 07:52] LABS: ABSOLUTE BASOPHILS 0.1 thou/uL (0.0-0.2); ABSOLUTE LYMPHOCYTES 0.6 thou/uL (0.8-5.3); ABSOLUTE MONOCYTES 0.8 thou/uL (0.0-1.2); ABSOLUTE NEUTROPHILS 17.2 thou/uL (1.6-8.1); BASOPHILS 0.6 %; EOSINOPHILS 0.1 %; HEMATOCRIT 49.4 % (42.0-52.0); HEMOGLOBIN 15.7 gm/dL (14.0-18.0); LYMPHOCYTES 3.4 %; MCH 30.5 pg (26.0-34.0); MCHC 31.8 g/dL (28.0-37.0); MCV 95.8 fL (80.0-100.0); MPV 9.3 fl. (7.2-11.1); NUCLEATED RBCS 0 /100WBC; PLATELET COUNT* 178 thou/uL (150-400); POLYS 91.9 %; RBC 5.15 mil/uL (4.50-6.00); WBC 18.7 thou/uL (4.0-11.0)
[2020-09-29 08:00] VITALS: BP 127/69
[2020-09-29 08:31] LABS: CALCIUM 8.4 mg/dL (8.5-10.1); MAGNESIUM 2.4 mg/dL (1.8-2.4); POTASSIUM 4.4 mmol/L (3.5-5.1); TOTAL BILIRUBIN 1.1 mg/dL (<0.1-1.0); TOTAL PROTEIN 6.3 g/dL (6.4-8.2)
--- NOTE | 2020-09-29 10:51 | NUR ---
WOUND NURSE: PATIENT SEEN FOR FOLLOW UP ASSESSMENT PERTAINING TO DFU ON BILATERAL GREAT TOES ON PLANTAR SURFACE. LEFT MEASURES 0.9 X 0.7 X 0.6 CM. CONTAINS PINKISH RED GRANULATION TISSUE AND SCANT AMOUNT OF SEROUSANGUINOUS DRAINAGE. RIGHT MEASURES 0.3 X 0.4 X 0.6 CM. ALSO CONTAINS PINKISH RED, GRANULATION TISSUE. PERIWOUND IS HEAVILY CALLOUSED. PATIENT WITHOUT COMPLAINTS OF PAIN OR DISCOMFORT. WOUND CARE PROVIDED PRESCRIBED. PATIENT REINSTRUCTED ON MEASURES TO PROMOTE HEALING AND PREVENT COMPLICATIONS. STATES HE UNDERSTANDS.
[2020-09-29 11:57] VITALS: BP 119/64
--- NOTE | 2020-09-29 15:09 | NUR ---
Anticipate dc in a few days. On bipap 60L 100%fio2. ?need for LTAC once o2 needs improve.
[2020-09-29 15:49] VITALS: BP 128/69
--- NOTE | 2020-09-29 17:36 | NUR ---
RECEIVED REPORT AROUND 0715. ASSUMED CARE. VS AND ASSESSMENT CHARTED. IV INTACT. HEART MONITOR ATTACHED AT SR/ST WITH BBB. PT UP IN CHAIR. MEDS GIVEN PER APR. HOURLY ROUNDING PERFORMED. ISOLATION INTACT. NO PAIN THIS SHIFT. CALL LIGHT WITH IN REACH. WILLL CONTINUE TO MONITOR.
[2020-09-29 20:00] VITALS: BP 130/66
[2020-09-30 00:26] VITALS: BP 126/75
[2020-09-30 04:10] VITALS: BP 111/87
[2020-09-30 07:57] VITALS: BP 103/55
[2020-09-30 12:21] VITALS: BP 121/69
[2020-09-30 14:42] LABS: ABSOLUTE BASOPHILS 0.1 thou/uL (0.0-0.2); ABSOLUTE LYMPHOCYTES 0.5 thou/uL (0.8-5.3); ABSOLUTE MONOCYTES 0.7 thou/uL (0.0-1.2); ABSOLUTE NEUTROPHILS 21.4 thou/uL (1.6-8.1); BASOPHILS 0.6 %; EOSINOPHILS 0.2 %; HEMOGLOBIN 15.7 gm/dL (14.0-18.0); LYMPHOCYTES 2.3 %; MCH 30.4 pg (26.0-34.0); MCHC 32.7 g/dL (28.0-37.0); MCV 93.1 fL (80.0-100.0); MONOCYTES 3.2 %; MPV 8.6 fl. (7.2-11.1); NUCLEATED RBCS 0 /100WBC; PLATELET COUNT* 197 thou/uL (150-400); POLYS 93.7 %; RBC 5.15 mil/uL (4.50-6.00); RDW-CV 14.3 % (10.5-14.5); WBC 22.9 thou/uL (4.0-11.0)
[2020-09-30 14:51] LABS: CALCIUM 8.8 mg/dL (8.5-10.1); POTASSIUM 4.6 mmol/L (3.5-5.1); TOTAL PROTEIN 6.4 g/dL (6.4-8.2)
--- NOTE | 2020-09-30 15:53 | NUR ---
Pt remains on bipap 60L fio2 is 100%
[2020-09-30 16:00] VITALS: BP 119/65
--- NOTE | 2020-09-30 19:09 | NUR ---
RECEIVED REPORT AROUND 0715. ASSUMED CARE. VS AND ASSESSMENT CHARTED. IV INTACT. HEART MONITOR ATTACHED AT SR/ST WITH BBB. PT UP IN CHAIR MOST OF DAY. NO PAIN THIS SHIFT. MEDS GIVEN PER APR. HOURLY ROUNDING PERFORMED. CALL LIGHT WITH IN REACH.
[2020-09-30 20:00] VITALS: BP 109/64
[2020-10-01 01:17] VITALS: BP 116/74
[2020-10-01 05:06] VITALS: BP 100/62
[2020-10-01 05:07] LABS: HEMATOCRIT 44.7 % (42.0-52.0); HEMOGLOBIN 14.7 gm/dL (14.0-18.0); MCH 30.6 pg (26.0-34.0); MCV 92.7 fL (80.0-100.0); MPV 8.6 fl. (7.2-11.1); NUCLEATED RBCS 0 /100WBC; PLATELET COUNT* 158 thou/uL (150-400); RBC 4.82 mil/uL (4.50-6.00); RDW-CV 14.4 % (10.5-14.5); WBC 17.3 thou/uL (4.0-11.0)
[2020-10-01 05:27] LABS: ALBUMIN 2.7 g/dL (3.4-5.0); CALCIUM 8.5 mg/dL (8.5-10.1); CREATININE 0.9 mg/dL (0.6-1.3); MAGNESIUM 2.2 mg/dL (1.8-2.4); POTASSIUM 4.7 mmol/L (3.5-5.1); TOTAL BILIRUBIN 0.9 mg/dL (<0.1-1.0); TOTAL PROTEIN 5.9 g/dL (6.4-8.2)
[2020-10-01 06:17] LABS: ABSOLUTE LYMPHOCYTES 0.5 thou/uL (0.8-5.3); ABSOLUTE MONOCYTES 0.2 thou/uL (0.0-1.2); ABSOLUTE NEUTROPHILS 16.6 thou/uL (1.6-8.1); PLATELET ESTIMATE ADEQUATE
[2020-10-01 08:00] VITALS: BP 136/84
[2020-10-01 12:00] VITALS: BP 109/56
--- NOTE | 2020-10-01 15:03 | NUR ---
Pt remains on bipap 60L 100%fio2. Dir Susannah of , discuss potential plan of LTAC with yesterday.
[2020-10-01 16:00] VITALS: BP 98/63
--- NOTE | 2020-10-01 18:35 | NUR ---
RECEIVED REPORT AROUND 0715. ASSUMED CARE. VS AND ASSESSMENT CHARTED. IV INTACT LEFT AC. HEART MONITOR ATTACHED AT SR/ST WITH BBB. NO PAIN THIS SHIFT. MEDS GIVEN PER APR. HOURLY ROUNDING PERFORMED. ISOLATION INTACT. CALL LIGHT WITH IN REACH. WILL CONTINUE TO MONITOR.
[2020-10-01 20:00] VITALS: BP 125/63
[2020-10-02 00:13] VITALS: BP 103/54
[2020-10-02 04:22] VITALS: BP 107/62
[2020-10-02 08:30] VITALS: BP 129/64
[2020-10-02 09:50] LABS: HEMATOCRIT 43.9 % (42.0-52.0); HEMOGLOBIN 14.9 gm/dL (14.0-18.0); MCHC 33.9 g/dL (28.0-37.0); MCV 91.6 fL (80.0-100.0); MPV 8.2 fl. (7.2-11.1); RBC 4.79 mil/uL (4.50-6.00); RDW-CV 14.4 % (10.5-14.5); WBC 19.7 thou/uL (4.0-11.0)
[2020-10-02 10:04] LABS: ALBUMIN 3.2 g/dL (3.4-5.0); CALCIUM 9.2 mg/dL (8.5-10.1); CREATININE 0.8 mg/dL (0.6-1.3); MAGNESIUM 2.3 mg/dL (1.8-2.4); POTASSIUM 4.8 mmol/L (3.5-5.1); TOTAL BILIRUBIN 1.2 mg/dL (<0.1-1.0); TOTAL PROTEIN 6.6 g/dL (6.4-8.2)
[2020-10-02 11:30] VITALS: BP 134/72
--- NOTE | 2020-10-02 14:01 | NUR ---
CM updatd on POC. Pt moved to room 220. Remains on bipap, 90%fio2
[2020-10-02 16:00] VITALS: BP 118/69
--- NOTE | 2020-10-02 18:29 | NUR ---
ASSUMED CARE OF PT AT 0730. PT A&0X4, DENIES ANY PAIN THROUGHOUT SHIFT. PT HAS SHORTNESS OF BREATH WITH EXERTION. ON HEATED HIGH FLOW 60 L/BIPAP THROUGHOUT SHIFT. SAT LOW 90'S. TRACING SR/ST WITH BBB ON THE HOSPITALITY DIRECTOR. PT UP WITH SBA TO BATHROOM. HERE THIS AFTERNOON TO VISIT. AM ASSESSMENT CHARTED. MEDICATIONS PER APR. PT REPOSITIONS SELF. HOURLY ROUNDING OBSERVED. BED IN LOW POSITION. CALL LIGHT WITHIN REACH. WILL CONTINUE PLAN OF CARE.
[2020-10-02 20:00] VITALS: BP 115/61
[2020-10-03 00:16] VITALS: BP 117/63
[2020-10-03 04:14] LABS: HEMOGLOBIN 13.9 gm/dL (14.0-18.0); MCH 30.7 pg (26.0-34.0); MCHC 33.2 g/dL (28.0-37.0); MCV 92.6 fL (80.0-100.0); RBC 4.54 mil/uL (4.50-6.00); RDW-CV 14.4 % (10.5-14.5); WBC 20.7 thou/uL (4.0-11.0)
[2020-10-03 04:48] LABS: ALBUMIN 2.7 g/dL (3.4-5.0); CALCIUM 8.6 mg/dL (8.5-10.1); CREATININE 0.9 mg/dL (0.6-1.3); MAGNESIUM 2.3 mg/dL (1.8-2.4); TOTAL BILIRUBIN 0.9 mg/dL (<0.1-1.0); TOTAL PROTEIN 5.9 g/dL (6.4-8.2)
--- NOTE | 2020-10-03 04:49 | NUR ---
PT ALERT ORIENTED. VOIDS PER URINAL. SENIOR BENEFITS ANALYST TRACING SR BBB. PT ON HEATED HIGHFLOW DAYS. BIPAP HS.
[2020-10-03 05:50] VITALS: BP 123/75
[2020-10-03 07:30] VITALS: BP 131/62
[2020-10-03 12:00] VITALS: BP 109/60
--- NOTE | 2020-10-03 16:35 | NUR ---
PT REMAINED ALERT AND ORIENTED. PT RESTING IN BED AND UP TO CHAIR. BED BATH GIVEN. TOLERATING HEATED HIGH FLOW O2. FALL RISK PRECAUTIONS IN PLACE. HOURLY ROUNDING COMPLETED. CALL LIGHT WITHIN REACH.
[2020-10-03 17:01] VITALS: BP 111/65
[2020-10-03 20:00] VITALS: BP 107/70
--- NOTE | 2020-10-04 02:45 | NUR ---
PT ALERT ORIENTED. ON BIPAP HS. CARDIAC MONITER TRACING SR BBB. DINESH GREAT TOE DRSG CDI. CHGD PER DAY SHIFT.
[2020-10-04 03:34] VITALS: BP 95/63
[2020-10-04 04:10] LABS: HEMATOCRIT 40.8 % (42.0-52.0); HEMOGLOBIN 13.6 gm/dL (14.0-18.0); MCH 30.8 pg (26.0-34.0); MCHC 33.4 g/dL (28.0-37.0); MCV 92.1 fL (80.0-100.0); MPV 8.1 fl. (7.2-11.1); RBC 4.43 mil/uL (4.50-6.00); RDW-CV 14.2 % (10.5-14.5); WBC 15.3 thou/uL (4.0-11.0)
[2020-10-04 04:31] LABS: ALBUMIN 2.7 g/dL (3.4-5.0); CALCIUM 8.5 mg/dL (8.5-10.1); CREATININE 0.9 mg/dL (0.6-1.3); MAGNESIUM 2.1 mg/dL (1.8-2.4); POTASSIUM 4.1 mmol/L (3.5-5.1); TOTAL BILIRUBIN 0.8 mg/dL (<0.1-1.0); TOTAL PROTEIN 5.9 g/dL (6.4-8.2)
[2020-10-04 04:51] VITALS: BP 100/62
[2020-10-04 09:00] VITALS: BP 127/59
[2020-10-04 11:50] VITALS: BP 116/65
[2020-10-04 16:05] VITALS: BP 99/69
[2020-10-04 20:00] VITALS: BP 121/62
--- NOTE | 2020-10-04 20:22 | NUR ---
ASSUMED PT CARE AT 0730. PT IS PLEASANTLY A&O X4. ASSESSMENT COMPLETED. PT UP AD GIANA IN ROOM AND VERBALIZES SAFETY PRECAUTIONS. MEDICATION ADMINISTERED ORDERED. TRREATMENT COMPLETED TO BILAT GREAT TOES. PT VOICES NO CONCERNS AT THIS TIME. HHF THIS AM AT 91% AND NOW AT 76%. PT FEELS HOPEFUL AND TO HAVE HIS O2 NEEDS DECREASE.
[2020-10-05 02:05] VITALS: BP 97/62
--- NOTE | 2020-10-05 04:10 | NUR ---
PT ALERT ORIENTED. BREATH SOUNDS DIMINISHED. O2 AT 74 HEATED HIGH FLOW. SOA WITH ANY ACTIVITY. PT DESATES TO LOW 80S AND RECOVERS SLOWLY OVER APPROX 5 MIN. BIPAP FOR SLEEP. POKER MACHINE ATTENDANT TRACING SR. DINESH GREAT TOE DRSG C/D/I CHANGED 10/04/20 PER DAY SHIFT.
[2020-10-05 06:02] VITALS: BP 105/56
[2020-10-05 07:35] VITALS: BP 122/87
[2020-10-05 08:01] LABS: HEMOGLOBIN 13.6 gm/dL (14.0-18.0); MPV 8.4 fl. (7.2-11.1); WBC 15.8 thou/uL (4.0-11.0)
[2020-10-05 08:10] LABS: ALBUMIN 2.8 g/dL (3.4-5.0); CALCIUM 8.4 mg/dL (8.5-10.1); CREATININE 0.9 mg/dL (0.6-1.3); POTASSIUM 4.9 mmol/L (3.5-5.1); TOTAL BILIRUBIN 0.6 mg/dL (<0.1-1.0); TOTAL PROTEIN 5.6 g/dL (6.4-8.2)
[2020-10-05 08:21] LABS: HEMATOCRIT 41.1 % (42.0-52.0); MCH 30.8 pg (26.0-34.0); MCHC 33.2 g/dL (28.0-37.0); MCV 92.8 fL (80.0-100.0); NUCLEATED RBCS 0 /100WBC; PLATELET COUNT* 137 thou/uL (150-400); RBC 4.42 mil/uL (4.50-6.00); RDW-CV 14.4 % (10.5-14.5)
[2020-10-05 09:03] LABS: ABSOLUTE EOSINOPHILS 0.2 thou/uL (0.0-0.7); ABSOLUTE LYMPHOCYTES 1.4 thou/uL (0.8-5.3); ABSOLUTE MONOCYTES 0.5 thou/uL (0.0-1.2); ABSOLUTE NEUTROPHILS 13.7 thou/uL (1.6-8.1); PLATELET ESTIMATE ADEQUATE
[2020-10-05 11:30] VITALS: BP 143/67
--- NOTE | 2020-10-05 15:44 | NUR ---
PT REMAINED ALERT AND ORIENTED. O2 TITRATED DOWN. DRESSING CHANGED. ACCU CHECKS COMPLETED. HEART MONITORED. FALL RISK PRECAUTIONS IN PLACE. HOURLY ROUNDING COMPLETED. CALL LIGHT WITHIN REACH.
[2020-10-05 16:00] VITALS: BP 114/76
[2020-10-05 19:30] VITALS: BP 132/86
[2020-10-06 00:39] VITALS: BP 97/40
[2020-10-06 04:52] VITALS: BP 98/50
[2020-10-06 05:09] LABS: ABSOLUTE EOSINOPHILS 0.3 thou/uL (0.0-0.7); ABSOLUTE LYMPHOCYTES 0.6 thou/uL (0.8-5.3); ABSOLUTE MONOCYTES 0.4 thou/uL (0.0-1.2); ABSOLUTE NEUTROPHILS 13.4 thou/uL (1.6-8.1); BASOPHILS 0.1 %; EOSINOPHILS 1.8 %; HEMOGLOBIN 13.7 gm/dL (14.0-18.0); MCH 30.9 pg (26.0-34.0); MCHC 33.4 g/dL (28.0-37.0); MCV 92.3 fL (80.0-100.0); MONOCYTES 2.7 %; MPV 7.9 fl. (7.2-11.1); NUCLEATED RBCS 0 /100WBC; PLATELET COUNT* 120 thou/uL (150-400); POLYS 91.4 %; RBC 4.44 mil/uL (4.50-6.00); RDW-CV 14.3 % (10.5-14.5); WBC 14.7 thou/uL (4.0-11.0)
[2020-10-06 05:25] LABS: PREALBUMIN 33.7 mg/dL (18.0-35.7)
[2020-10-06 05:31] LABS: ALBUMIN 2.8 g/dL (3.4-5.0); CALCIUM 8.6 mg/dL (8.5-10.1); CREATININE 0.9 mg/dL (0.6-1.3); MAGNESIUM 2.3 mg/dL (1.8-2.4); TOTAL BILIRUBIN 0.7 mg/dL (<0.1-1.0); TOTAL PROTEIN 6.1 g/dL (6.4-8.2)
[2020-10-06 07:35] VITALS: BP 115/74
--- NOTE | 2020-10-06 08:20 | NUR ---
CM FAXED REFERALS TO [facility]. [facility] "HOLDING BEDS FOR VENT PTS."
--- NOTE | 2020-10-06 08:41 | NUR ---
PT SLEPT MOST OF SHIFT. ASSESSMENT DOCUMENTED. MEDS GIVEN PER E-MAR. IV PATENT. NO REPORTS OF PAIN. PT WORE BIPAP WHILE SLEEPING. PT ABLE TO MAKE NEEDS KNOWN. WILL CONTINUE WITH PLAN OF CARE.
[2020-10-06 12:00] VITALS: BP 111/73
--- NOTE | 2020-10-06 15:47 | NUR ---
CM FAXED REFERRALS TO [facility] WITH [facility], WHO IS COVERING FOR [facility]; [phone] ([phone]). ALSO SENT REFERRAL TO [facility]. PER ALEX, , [facility] IS STILL REVIEWING AND GETTING A "COST OUT" OF PT'S MEDICATIONS. ALEX TO [place] BACK W/CM WITH UPDATE. LASTLY, SENT REFERRAL TO [facility], WHO INDICATED SHE HADNT RECEIVED THE REFERRAL SO SHANT REFAXED IT TO [phone].
[2020-10-06 16:00] VITALS: BP 119/67
--- NOTE | 2020-10-06 16:19 | NUR ---
PT REMAINED ALERT AND ORIENTED. PT UP IN CHAIR. DRESSING CHANGED. FALL RISK PRECAUTIONS IN PLACE. HOURLY ROUNDING COMPLETED. CALL LIGHT WITHIN REACH.
[2020-10-06 19:30] VITALS: BP 115/67
[2020-10-07] VITALS (7 sets, daily range): BP systolic 101–140; BP diastolic 55–89
[2020-10-07 04:37] LABS: ABSOLUTE EOSINOPHILS 1.6 thou/uL (0.0-0.7); ABSOLUTE LYMPHOCYTES 1.3 thou/uL (0.8-5.3); ABSOLUTE MONOCYTES 0.4 thou/uL (0.0-1.2); ABSOLUTE NEUTROPHILS 11.3 thou/uL (1.6-8.1); BASOPHILS 0.2 %; EOSINOPHILS 10.8 %; HEMATOCRIT 42.9 % (42.0-52.0); HEMOGLOBIN 14.4 gm/dL (14.0-18.0); LYMPHOCYTES 9.2 %; MCHC 33.5 g/dL (28.0-37.0); MCV 92.5 fL (80.0-100.0); MONOCYTES 2.6 %; NUCLEATED RBCS 0 /100WBC; PLATELET COUNT* 130 thou/uL (150-400); POLYS 77.2 %; RBC 4.64 mil/uL (4.50-6.00); RDW-CV 14.2 % (10.5-14.5); WBC 14.6 thou/uL (4.0-11.0)
[2020-10-07 05:06] LABS: ALBUMIN 2.9 g/dL (3.4-5.0); CALCIUM 8.9 mg/dL (8.5-10.1); CREATININE 0.8 mg/dL (0.6-1.3); TOTAL BILIRUBIN 0.7 mg/dL (<0.1-1.0); TOTAL PROTEIN 6.3 g/dL (6.4-8.2)
[2020-10-07 05:14] LABS: POTASSIUM 3.9 mmol/L (3.5-5.1)
--- NOTE | 2020-10-07 07:09 | NUR ---
PT SLEPT MOST OF SHIFT. ASSESSMENT DOCUMENTED. MEDS GIVEN PER E-APR. IV PATENT. NO REPORTS OF PAIN. PT ON HHFNC WHILE AWAKE AND BIPAP WHILE SLEEPING. PT ABLE TO MAKE NEEDS KNOWN. WILL CONTINUE WITH PLAN OF CARE.
--- NOTE | 2020-10-07 09:19 | NUR ---
ASSUMED CARE OF PT THIS AM AROUND 714- BELT BACK OPERATOR IN PLACE ORDERED, TRACING SA WITH BBB- UPON ASSESSMENT PT NOTED TO BE RESTING IN BED, WATCHING TV- PT A&O X4- CONT OF B/B- UP AD-GIANA TO BED SIDE RECLINER AND CHAIR- RIGHT LOWER LOBE CRACKLES NOTED- DYSPNEA NOTED- VSS, O2 SAT 90% ON HEATED HF AT 65%- ABD SOFT/OBESE/NON-TENDER, BS X4 QUADS- LAST BM REPORTED X 3 DAYS AGO- IV NOTED TO LEFT AC INTACT AND SL- UP TO BED SIDE RELCINER THIS AM WITH [place], GOOD PO INTAKE NOTED- BS MONITORED ORDERED- DENIES ANY C/O PAIN- CALL LIGHT AND PERSONAL BELONGINGS WITH IN REACH- ALL NEEDS MET AT THIS TIME
--- NOTE | 2020-10-07 14:23 | NUR ---
Case and plan of care reviewed with MD each weekday during patient's length of stay. Continue plan of care per MD orders for current dx. Remains on Bipap, today FiO2 65%. Remains stable for transfer to LTAC. Rashaun Hartman called back, requested clinicals for 10/05-10/07 and med list, this was faxed to [phone].
[2020-10-08 04:38] VITALS: BP 118/63
[2020-10-08 04:56] LABS: ABSOLUTE EOSINOPHILS 1.1 thou/uL (0.0-0.7); ABSOLUTE LYMPHOCYTES 1.1 thou/uL (0.8-5.3); ABSOLUTE MONOCYTES 0.3 thou/uL (0.0-1.2); ABSOLUTE NEUTROPHILS 8.9 thou/uL (1.6-8.1); BASOPHILS 0.4 %; EOSINOPHILS 9.4 %; HEMATOCRIT 40.8 % (42.0-52.0); HEMOGLOBIN 13.6 gm/dL (14.0-18.0); LYMPHOCYTES 9.7 %; MCH 30.8 pg (26.0-34.0); MCHC 33.3 g/dL (28.0-37.0); MCV 92.6 fL (80.0-100.0); MONOCYTES 2.7 %; MPV 7.7 fl. (7.2-11.1); NUCLEATED RBCS 0 /100WBC; PLATELET COUNT* 113 thou/uL (150-400); POLYS 77.8 %; RBC 4.41 mil/uL (4.50-6.00); RDW-CV 14.4 % (10.5-14.5); WBC 11.4 thou/uL (4.0-11.0)
[2020-10-08 05:12] LABS: ALBUMIN 2.6 g/dL (3.4-5.0); CALCIUM 8.2 mg/dL (8.5-10.1); CREATININE 0.7 mg/dL (0.6-1.3); POTASSIUM 3.7 mmol/L (3.5-5.1); TOTAL BILIRUBIN 0.8 mg/dL (<0.1-1.0); TOTAL PROTEIN 5.8 g/dL (6.4-8.2)
--- NOTE | 2020-10-08 05:42 | NUR ---
PT IS AO X4 SITTING IN CHAIR MOST OF DAY. PT IS ON BIPAP WITH HHF BLED THROUGH AT 65% PT REPORTS NONPRODUCTIVE COUGH AT TIMES. PT IS GETTING NYSTATIN FOR ORAL THRUSH. DSG TO BILAT GREAT TOES FOR DIABETIC ULCERS, SEEN BY WOUND CARE. CALL LIGHT WITHIN REACH FOR PT SAFETY
[2020-10-08 08:01] VITALS: BP 111/73
--- NOTE | 2020-10-08 08:06 | NUR ---
AUTUMN left from [facility] pt is accepted/auth not started as pt is #7 on admission wait list, not anticipating discharges for the next two weeks. [phone]
--- NOTE | 2020-10-08 11:35 | NUR ---
ASSUMED CARE OF PT THIS AM AROUND 07- SUPERINTENDENT QUARRY IN PLACE ORDERED, TRACING SA- UPON ASSESSMENT PT NOTED TO BE RESTING IN BED SIDE RECLINER- PT A&O X4-CONT OF B/B- UP AD-GIANA IN BED SIDE COMMODE- DIMINSHED IN UPPER LOBES, DYSPNEA NOTED- VSS, O2 SAT 99% ON BIPAP/HHF AT 65%- ABD SOFT/ROUND/NON-TENDER, BS X4 QUADS- LAST BM REPORTED 10/07/20- IV NOTED TO LEFT AC INTACT AND SL- GOOD PO INTAKE NOTED THIS AM WITH BREAKFAST, BS MONITORED PER ORDERS- +1 BLE EDEMA WITH DISCOLORATION, LEG ELEVATION ENCOURAGED- DRSG TO DINESH BIG TOES NOTED TO BE C/D/I- PT DENIES ANY C/O PAIN- CALL LIGHT AND PERSONAL BELONGINGS WITH IN REACH- PT MAKES NEEDS KNOWN- ALL NEEDS MET AT THIS TIME
--- NOTE | 2020-10-08 12:33 | NUR ---
COLE SPK WITH [facility] [phone]. [facility] REQUESTING UPDATED CLINCIALS. COLE FAXED CLINICALS TO [phone].
[2020-10-08 16:00] VITALS: BP 103/62
[2020-10-08 19:45] VITALS: BP 110/68
[2020-10-09 01:00] VITALS: BP 110/66
--- NOTE | 2020-10-09 04:20 | NUR ---
PT A&O X 4. ON 14L THEN BIPAP HS. MEDS GIVEN ORDERED. UP INDEPENDENTLY FROM CHAIR TO BED. DRESSINGS C/D/I. BREATHING TREATMENT Q4H. CALL LIGHT WITHIN REACH. WILL CONTINUE TO MONITOR.
[2020-10-09 05:04] VITALS: BP 91/54
[2020-10-09 08:00] VITALS: BP 125/65
--- NOTE | 2020-10-09 09:27 | NUR ---
Called [facility] [phone] spoke to Silvana, starting auth today, anticipating dc early next week. Will call CM Thursday 10/12 and update on dc and auth. Stated with [facility] take anywhere from 2-5 days. Case and plan of care reviewed with MD each weekday during patient's length of stay. Continue plan of care per MD orders for current dx. Pt remains on Bipap 55 FiO2. CM Will continue to follow for discharge assistance needs.
[2020-10-09 12:00] VITALS: BP 97/58
[2020-10-09 16:00] VITALS: BP 94/59
--- NOTE | 2020-10-09 16:17 | NUR ---
[facility] MONITOR TRACKING WITH NO CHANGE IN RHYTHM. UP IN CHAIR MOST DURING SHIFT TODAY - 02 REMAINS ON 14L HF NC. TOLERATING DIET, NO COMPLAINTS OF PAIN. PATEINT DOES REPORT STARTING TO FEEL BETTER. CALL LIGHT TESS CARNEY. WILL CONTINUE WITH PLAN OF CARE.
[2020-10-09 19:45] VITALS: BP 109/61
[2020-10-10 01:14] VITALS: BP 92/62
[2020-10-10 04:27] LABS: ALBUMIN 2.5 g/dL (3.4-5.0); CALCIUM 8.2 mg/dL (8.5-10.1); CREATININE 0.6 mg/dL (0.6-1.3); POTASSIUM 3.7 mmol/L (3.5-5.1); TOTAL BILIRUBIN 0.8 mg/dL (<0.1-1.0); TOTAL PROTEIN 5.7 g/dL (6.4-8.2)
[2020-10-10 04:38] VITALS: BP 118/71
[2020-10-10 04:38] LABS: ABSOLUTE EOSINOPHILS 0.6 thou/uL (0.0-0.7); ABSOLUTE LYMPHOCYTES 1.1 thou/uL (0.8-5.3); ABSOLUTE MONOCYTES 0.4 thou/uL (0.0-1.2); ABSOLUTE NEUTROPHILS 9.2 thou/uL (1.6-8.1); BASOPHILS 0.3 %; HEMOGLOBIN 12.8 gm/dL (14.0-18.0); LYMPHOCYTES 9.9 %; MCH 31.3 pg (26.0-34.0); MCHC 34.6 g/dL (28.0-37.0); MCV 90.5 fL (80.0-100.0); MONOCYTES 3.2 %; MPV 7.9 fl. (7.2-11.1); NUCLEATED RBCS 0 /100WBC; PLATELET COUNT* 138 thou/uL (150-400); POLYS 81.6 %; RBC 4.09 mil/uL (4.50-6.00); RDW-CV 14.5 % (10.5-14.5); WBC 11.3 thou/uL (4.0-11.0)
--- NOTE | 2020-10-10 04:55 | NUR ---
PT A&O X 4. ON 12L THEN BIPAP HS. MEDS GIVEN ORDERED. NO C/O PAIN. UP INDEPENTLY IN ROOM. CALL LIGHT WITHIN REACH. WILL CONTINUE TO MONITOR.
[2020-10-10 07:40] VITALS: BP 104/57
[2020-10-10 12:00] VITALS: BP 92/54
[2020-10-10 16:00] VITALS: BP 106/63
--- NOTE | 2020-10-10 17:03 | NUR ---
PT REMAINED ALERT AND ORIENTED. PT UP IN CHAIR. ACCU CHECKS COMPLETED. HEART MONITORED. HOURLY ROUNDING COMPLETED. CALL LIGHT WITHIN REACH. FALL RISK PRECAUITONS IN PLACE. WOUND DRESSING CHANGED.
[2020-10-10 20:00] VITALS: BP 133/67
[2020-10-11] VITALS (7 sets, daily range): BP systolic 93–142; BP diastolic 50–80
--- NOTE | 2020-10-11 01:24 | NUR ---
PT ALERT ORIENTED. UP WITH STAND BY ASSIST. DINESH GREAT TOE DRSG C/D/I. O2 AT 12 LITERS HIGH FLOW. BIPAP HS. ARCHEOLOGIST CLASSICAL TRACING SR BBB.
--- NOTE | 2020-10-11 16:19 | NUR ---
PT REMAINED ALERT AND ORIENTED. DRESSING COMPLETED. HEART MONITORED. ACCU CHECKS COMPLETED. FALL RISK PRECAUTIONS IN PLACE. HOURLY ROUNDING COMPLETED. CALL LIGHT WITHIN REACH.
[2020-10-12 03:47] VITALS: BP 93/49
--- NOTE | 2020-10-12 07:47 | NUR ---
ASSUMED CARE OF PT AFTER REPORT AT 1930. PT A&OX4. VSS. PHYSICAL ASSESSMENT COMPLETED AND CHARTED. PT ON HFNC 10L/BIPAP AT HS. PT TRACING SR/BBB ON TELE. PT UPADLIB TO BSC. PT DENIES ANY PAIN. PT ABLE TO SLEEP WELL ON BED. CALL LIGHT WITHIN REACH.
[2020-10-12 08:13] VITALS: BP 102/64
--- NOTE | 2020-10-12 09:08 | NUR ---
ASSUMED CARE OF PT THIS AM AROUND 07- SOLDERER TORCH IN PLACE ORDERED, TRACING SR/BBB- UPON ASSESSMENT PT NOTED TO BE RESTING IN BED SIDE RECLINER- PT A&O X4- CONT OF B/B- UP AD-GIANA TO BED SIDE COMMODE- LCTA/DIMINISHED IN BASES- VSS, O2 SAT 93% ON HF NC AT 10L- ABD SOFT/ROUND/NON-TENDER, BS X4 QUADS- LAST BM REPORTED 10/11/20- IV NOTED TO LEFT HAND INTACT AND SL- GOOD PO INTAKE NOTED THIS AM WITH BREAKFAST, BS MONITORED ORDERED- +1 BLE EDEMA NOTED, LEG ELEVATION IN PLACE- DRESSINGS NOTED TO DINESH LOWER GREAT TOES C/D/I- PT DENIES ANY C/O PAIN/DISCOMFORT AT THIS TIME- CALL LIGHT AND PERSONAL BELONGINGS WITH IN REACH- ALL NEEDS MET AT THIS TIME
[2020-10-12 11:30] VITALS: BP 109/62
[2020-10-12 13:30] LABS: ABSOLUTE EOSINOPHILS 0.1 thou/uL (0.0-0.7); ABSOLUTE LYMPHOCYTES 0.5 thou/uL (0.8-5.3); ABSOLUTE MONOCYTES 0.2 thou/uL (0.0-1.2); ABSOLUTE NEUTROPHILS 9.7 thou/uL (1.6-8.1); BASOPHILS 0.4 %; EOSINOPHILS 0.6 %; HEMATOCRIT 41.1 % (42.0-52.0); HEMOGLOBIN 13.7 gm/dL (14.0-18.0); LYMPHOCYTES 4.6 %; MCH 30.6 pg (26.0-34.0); MCHC 33.2 g/dL (28.0-37.0); MCV 92.1 fL (80.0-100.0); MONOCYTES 1.5 %; MPV 7.4 fl. (7.2-11.1); NUCLEATED RBCS 0 /100WBC; PLATELET COUNT* 180 thou/uL (150-400); POLYS 92.9 %; RBC 4.47 mil/uL (4.50-6.00); RDW-CV 14.4 % (10.5-14.5); WBC 10.4 thou/uL (4.0-11.0)
[2020-10-12 13:42] LABS: ALBUMIN 2.8 g/dL (3.4-5.0); CALCIUM 8.7 mg/dL (8.5-10.1); CREATININE 0.9 mg/dL (0.6-1.3); POTASSIUM 3.5 mmol/L (3.5-5.1); TOTAL BILIRUBIN 0.9 mg/dL (<0.1-1.0); TOTAL PROTEIN 6.4 g/dL (6.4-8.2)
--- NOTE | 2020-10-12 15:15 | NUR ---
OSMAR WITH [facility] CALLED FOR UPDATED CLINICALS, INDICATING INSUR AUTH STILL PENDING. CM FAXED UPDATED CLINICALS TO [phone].
[2020-10-12 16:00] VITALS: BP 100/63
[2020-10-12 20:00] VITALS: BP 93/55
[2020-10-12 23:59] VITALS: BP 113/69
[2020-10-13 04:15] VITALS: BP 120/57
--- NOTE | 2020-10-13 05:57 | NUR ---
ASSUMED CARE OF PT AFTER REPORT AT 1930. PT A&OX4. VSS. PHYSICAL ASSESSMENT COMPLETED AND CHARTED. PT ON HFNC 10L/BIPAP AT HS. SOB ON EXERTION NOTED. PT TRACING SR/BBB ON TELE. PT DENIES ANY PAIN. PT ABLE TO SLEEP WELL ON BED. CALL LIGHT WITHIN REACH.
[2020-10-13] MEDS ORDERED: PROAIR HFA8.5 GM INH (07:35)
[2020-10-13] MEDS ORDERED: DEXAMETHASONE1 MG PO (07:35)
[2020-10-13] MEDS ORDERED: PROTONIX40 M2 PO (07:35)
[2020-10-13] MEDS ORDERED: LASIX 40 MG TAB40 M2 PO (07:37)
[2020-10-13] MEDS ORDERED: SINGULAIR 10 MG10 M1 PO (07:37)
[2020-10-13] MEDS ORDERED: METFORMIN HCL500 MG PO (07:38)
[2020-10-13 08:17] VITALS: BP 100/65
--- NOTE | 2020-10-13 09:30 | NUR ---
ASSUMED CARE OF PT THIS AM AROUND 07- PRINTER HELPER IN PLACE ORDERED, TRACING SB/BBB- UPON ASSESSMENT PT NOTED TO BE RESTING IN BED SIDE RECLINER- PT A&O X4- CONT OF B/B- UP AD-GIANA TO BED SIDE COMMODE- LCTA, DYSPNEA NOTED WITH LITTLE EXERTION- VSS, O2 SAT 94% ON 10 L HF NC- ABD SOFT/ROUND/NON-TENDER, BS X4 QUADS- LAST BM REPORTED 10/12/20- IV NOTED TO LEFT HAND INTACT AND SL- GOOD PO INTAKE NOTED THIS AM WITH BREAKFAST- BS MONITORED ORDERED, WITH ORAL AND SSI PRESCRIBED- +1 BLE EDEMA NOTED- DRESSINGS NOTED C/D/I TO DINESH LE GREATER TOES- PT DENIES ANY C/O PAIN/DISCOMFORT AT THIS TIME- ALL NEEDS MET AT THIS TIME
[2020-10-13 12:16] VITALS: BP 94/54
[2020-10-13] MEDS ORDERED: HUMALOG100 UNIT/1 SUBQ (12:45)
[2020-10-13 12:46] VITALS: BP 94/54
[2020-10-13 12:48] VITALS: BP 94/54
--- NOTE | 2020-10-13 14:23 | NUR ---
[facility] WITH [facility] CONTACTED CM TO ADVISED THE ARE ACCEPTING OF PT, PENDING A REVIEWN OF A RECENT MAR, CM FAXED UPDATED MED LIST TO [phone]. [facility] INDICATED THEY RECEIVED INSURANCE AUTH. COLE SPK WITH PT RE [facility] TRANSFER, PT AGREEABLE AND SIGNED EMATALA PAPERWORK. PER JESIKA, WITH WOUND CARE, PODITRIST NEEDS TO COME TO SEE PT TODAY WOUND ON FOOT MAY HAVE WORSENED.
--- NOTE | 2020-10-13 16:32 | NUR ---
[facility] WITH [facility] INDICATED THEY ARE ACCEPTING OF PT TODAY AND THEY WOULD LIKE TRANSPORTATION FOR 183. ROOM 312. ADMITTING MD DR. NUNEZ. RN NUMBER TO CALL REPORT [phone].
[2020-10-13 17:04] VITALS: BP 103/71
--- NOTE | 2020-10-13 17:23 | NUR ---
WOUND NURSE: PATIENT WAS FOLLOWED UP ON BY DR. TARANGO AT THE REQUEST OF THIS NURSE PRIOR TO HIS DISCHAWRGE TODAY. BILATERAL GREAT TOES REQUIRED AND WERE DEBRIDED BY THE PHYSICIAN. PRE AND POST DEBRIDEMENT PICTURES WERE OBTAINED THEN, THEN WOUNDS WERE WRAPPED PREVIOUSLY ORDERED. SEE DR. TARANGO'S DOCUMENTATION FOR SPECIFICS. PATIENT PROVIDED WITH DR. TARANGO'S INFORMATION AND IS TO FOLLOW UP WITH HER ONCE HE IS DISCHARGED TO HOME.
[2020-10-14 14:19] VITALS: BP 94/54
== END 2020-10-13 19:07 | disposition home or self-care (01) | DRG 166 ==
LOC: M.ERS 11:05 → M.TBA-ER 12:49 → M.ERS 12:49 → M.ORTHSURG 13:27 → M.2W 13:27 → M.TBA-ER 13:27 → M.ICU 13:27 → M.ORTHSURG 09-27 20:11 → M.2W 10-02 08:22
PROVIDERS: Internal Medicine; Internal Medicine Critical Care Medicine; Nurse Practitioner Family; Pediatrics; ADMIT Internal Medicine; ATTEND Internal Medicine
PROC: XW033H5 Introduction of Tocilizumab into Peripheral Vein, Percutaneous Approach, New Technology Group 5 (ICD-10-PCS; 2020-09-14)
PROC: 5A09357 Assistance with Respiratory Ventilation, Less than 24 Consecutive Hours, Continuous Positive Airway Pressure (ICD-10-PCS; 2020-09-14)
PROC: XW033E5 Introduction of Remdesivir Anti-infective into Peripheral Vein, Percutaneous Approach, New Technology Group 5 (ICD-10-PCS; 2020-09-14)
PROC: XW13325 Transfusion of Convalescent Plasma (Nonautologous) into Peripheral Vein, Percutaneous Approach, New Technology Group 5 (ICD-10-PCS; 2020-09-14)
PROC: 5A0935A Assistance with Respiratory Ventilation, Less than 24 Consecutive Hours, High Flow/Velocity Cannula (ICD-10-PCS; principal; 2020-09-15)
PROC: 5A09357 Assistance with Respiratory Ventilation, Less than 24 Consecutive Hours, Continuous Positive Airway Pressure (ICD-10-PCS; principal; 2020-09-15)
PROC: 0JBR0ZZ Excision of Left Foot Subcutaneous Tissue and Fascia, Open Approach (ICD-10-PCS; principal; 2020-09-15)
PROC: 5A09357 Assistance with Respiratory Ventilation, Less than 24 Consecutive Hours, Continuous Positive Airway Pressure (ICD-10-PCS; 2020-09-16)
PROC: 5A0935A Assistance with Respiratory Ventilation, Less than 24 Consecutive Hours, High Flow/Velocity Cannula (ICD-10-PCS; 2020-09-16)
PROC: 5A09357 Assistance with Respiratory Ventilation, Less than 24 Consecutive Hours, Continuous Positive Airway Pressure (ICD-10-PCS; 2020-09-17)
PROC: 5A0935A Assistance with Respiratory Ventilation, Less than 24 Consecutive Hours, High Flow/Velocity Cannula (ICD-10-PCS; 2020-09-17)
PROC: 5A0935A Assistance with Respiratory Ventilation, Less than 24 Consecutive Hours, High Flow/Velocity Cannula (ICD-10-PCS; 2020-09-18)
PROC: 5A09357 Assistance with Respiratory Ventilation, Less than 24 Consecutive Hours, Continuous Positive Airway Pressure (ICD-10-PCS; 2020-09-18)
PROC: 5A09357 Assistance with Respiratory Ventilation, Less than 24 Consecutive Hours, Continuous Positive Airway Pressure (ICD-10-PCS; 2020-09-19)
PROC: 5A0935A Assistance with Respiratory Ventilation, Less than 24 Consecutive Hours, High Flow/Velocity Cannula (ICD-10-PCS; 2020-09-19)
PROC: 5A09357 Assistance with Respiratory Ventilation, Less than 24 Consecutive Hours, Continuous Positive Airway Pressure (ICD-10-PCS; 2020-09-20)
PROC: 5A0935A Assistance with Respiratory Ventilation, Less than 24 Consecutive Hours, High Flow/Velocity Cannula (ICD-10-PCS; 2020-09-20)
PROC: 5A09357 Assistance with Respiratory Ventilation, Less than 24 Consecutive Hours, Continuous Positive Airway Pressure (ICD-10-PCS; 2020-09-21)
PROC: 5A0935A Assistance with Respiratory Ventilation, Less than 24 Consecutive Hours, High Flow/Velocity Cannula (ICD-10-PCS; 2020-09-21)
PROC: 5A0935A Assistance with Respiratory Ventilation, Less than 24 Consecutive Hours, High Flow/Velocity Cannula (ICD-10-PCS; 2020-09-22)
PROC: 5A0935A Assistance with Respiratory Ventilation, Less than 24 Consecutive Hours, High Flow/Velocity Cannula (ICD-10-PCS; 2020-09-23)
PROC: 5A09357 Assistance with Respiratory Ventilation, Less than 24 Consecutive Hours, Continuous Positive Airway Pressure (ICD-10-PCS; 2020-09-23)
PROC: 5A09357 Assistance with Respiratory Ventilation, Less than 24 Consecutive Hours, Continuous Positive Airway Pressure (ICD-10-PCS; 2020-09-24)
PROC: 5A0935A Assistance with Respiratory Ventilation, Less than 24 Consecutive Hours, High Flow/Velocity Cannula (ICD-10-PCS; 2020-09-26)
PROC: 5A09357 Assistance with Respiratory Ventilation, Less than 24 Consecutive Hours, Continuous Positive Airway Pressure (ICD-10-PCS; 2020-09-26)
PROC: 5A09357 Assistance with Respiratory Ventilation, Less than 24 Consecutive Hours, Continuous Positive Airway Pressure (ICD-10-PCS; 2020-09-27)
PROC: 5A0935A Assistance with Respiratory Ventilation, Less than 24 Consecutive Hours, High Flow/Velocity Cannula (ICD-10-PCS; 2020-09-27)
PROC: 5A09357 Assistance with Respiratory Ventilation, Less than 24 Consecutive Hours, Continuous Positive Airway Pressure (ICD-10-PCS; 2020-09-28)
PROC: 5A0935A Assistance with Respiratory Ventilation, Less than 24 Consecutive Hours, High Flow/Velocity Cannula (ICD-10-PCS; 2020-09-28)
PROC: 5A0935A Assistance with Respiratory Ventilation, Less than 24 Consecutive Hours, High Flow/Velocity Cannula (ICD-10-PCS; 2020-09-29)
PROC: 5A09357 Assistance with Respiratory Ventilation, Less than 24 Consecutive Hours, Continuous Positive Airway Pressure (ICD-10-PCS; 2020-09-29)
PROC: 5A09357 Assistance with Respiratory Ventilation, Less than 24 Consecutive Hours, Continuous Positive Airway Pressure (ICD-10-PCS; 2020-09-30)
PROC: 5A0935A Assistance with Respiratory Ventilation, Less than 24 Consecutive Hours, High Flow/Velocity Cannula (ICD-10-PCS; 2020-09-30)
PROC: 5A0935A Assistance with Respiratory Ventilation, Less than 24 Consecutive Hours, High Flow/Velocity Cannula (ICD-10-PCS; 2020-10-01)
PROC: 5A09357 Assistance with Respiratory Ventilation, Less than 24 Consecutive Hours, Continuous Positive Airway Pressure (ICD-10-PCS; 2020-10-01)
PROC: 5A09357 Assistance with Respiratory Ventilation, Less than 24 Consecutive Hours, Continuous Positive Airway Pressure (ICD-10-PCS; 2020-10-02)
PROC: 5A0935A Assistance with Respiratory Ventilation, Less than 24 Consecutive Hours, High Flow/Velocity Cannula (ICD-10-PCS; 2020-10-02)
PROC: 5A0935A Assistance with Respiratory Ventilation, Less than 24 Consecutive Hours, High Flow/Velocity Cannula (ICD-10-PCS; 2020-10-03)
PROC: 5A09357 Assistance with Respiratory Ventilation, Less than 24 Consecutive Hours, Continuous Positive Airway Pressure (ICD-10-PCS; 2020-10-03)
PROC: 5A09357 Assistance with Respiratory Ventilation, Less than 24 Consecutive Hours, Continuous Positive Airway Pressure (ICD-10-PCS; 2020-10-04)
PROC: 5A0935A Assistance with Respiratory Ventilation, Less than 24 Consecutive Hours, High Flow/Velocity Cannula (ICD-10-PCS; 2020-10-04)
PROC: 5A09357 Assistance with Respiratory Ventilation, Less than 24 Consecutive Hours, Continuous Positive Airway Pressure (ICD-10-PCS; 2020-10-05)
PROC: 5A0935A Assistance with Respiratory Ventilation, Less than 24 Consecutive Hours, High Flow/Velocity Cannula (ICD-10-PCS; 2020-10-06)
PROC: 5A09357 Assistance with Respiratory Ventilation, Less than 24 Consecutive Hours, Continuous Positive Airway Pressure (ICD-10-PCS; 2020-10-06)
PROC: 5A0935A Assistance with Respiratory Ventilation, Less than 24 Consecutive Hours, High Flow/Velocity Cannula (ICD-10-PCS; 2020-10-07)
PROC: 5A09357 Assistance with Respiratory Ventilation, Less than 24 Consecutive Hours, Continuous Positive Airway Pressure (ICD-10-PCS; 2020-10-07)
PROC: 5A0935A Assistance with Respiratory Ventilation, Less than 24 Consecutive Hours, High Flow/Velocity Cannula (ICD-10-PCS; 2020-10-08)
PROC: 5A09357 Assistance with Respiratory Ventilation, Less than 24 Consecutive Hours, Continuous Positive Airway Pressure (ICD-10-PCS; 2020-10-08)
PROC: 5A0935A Assistance with Respiratory Ventilation, Less than 24 Consecutive Hours, High Flow/Velocity Cannula (ICD-10-PCS; 2020-10-09)
PROC: 5A09357 Assistance with Respiratory Ventilation, Less than 24 Consecutive Hours, Continuous Positive Airway Pressure (ICD-10-PCS; 2020-10-10)
PROC: 5A0935A Assistance with Respiratory Ventilation, Less than 24 Consecutive Hours, High Flow/Velocity Cannula (ICD-10-PCS; 2020-10-10)
PROC: 5A09357 Assistance with Respiratory Ventilation, Less than 24 Consecutive Hours, Continuous Positive Airway Pressure (ICD-10-PCS; 2020-10-11)
PROC: 5A0935A Assistance with Respiratory Ventilation, Less than 24 Consecutive Hours, High Flow/Velocity Cannula (ICD-10-PCS; 2020-10-11)
PROC: 5A09357 Assistance with Respiratory Ventilation, Less than 24 Consecutive Hours, Continuous Positive Airway Pressure (ICD-10-PCS; 2020-10-12)
PROC: 5A0935A Assistance with Respiratory Ventilation, Less than 24 Consecutive Hours, High Flow/Velocity Cannula (ICD-10-PCS; 2020-10-12)
DX: U07.1 COVID-19 (principal); J80 Acute respiratory distress syndrome; J12.82 Pneumonia due to coronavirus disease 2019; Z96.652 Presence of left artificial knee joint; I10 Essential (primary) hypertension; E66.01 Morbid (severe) obesity due to excess calories; G47.33 Obstructive sleep apnea (adult) (pediatric); E87.70 Fluid overload, unspecified; L97.529 Non-pressure chronic ulcer of other part of left foot with unspecified severity; E11.65 Type 2 diabetes mellitus with hyperglycemia; L97.519 Non-pressure chronic ulcer of other part of right foot with unspecified severity; B37.9 Candidiasis, unspecified; Z66 Do not resuscitate; E11.621 Type 2 diabetes mellitus with foot ulcer; Z68.36 Body mass index [BMI] 36.0-36.9, adult

== ENCOUNTER → 2020-12-22 | Outpatient (CLI) | payer BC ==
[~2020-12-22] MED LIST: DEXAMETHASONE1 MG PO; HUMALOG100 UNIT/1 SUBQ; LASIX 40 MG TAB40 M2 PO; LISINOPRIL20 MG PO; METFORMIN HCL500 MG PO; NORVASC5 MG PO; PROAIR HFA8.5 GM INH; PROTONIX40 M2 PO; SINGULAIR 10 MG10 M1 PO
--- NOTE | 2020-12-22 13:47 | 2DMMODE ---
[place] [address] 2 D/M-MODE ECHOCARDIOGRAM Name: TANIA SIMON Room: [facility]#: [id number] Admission: 12/22/20 Attend Phys: Mor Martinez MD Discharge: Date of : 64 Date of Service: 12/22/20 1347 Report #: [id number] THIS REPORT FOR: cc: Garrett Casiano Adam J DO Liston, Michael J. MD [facility] ~ APPROVED REPORT Study performed: 12/22/2020 13:57:04 EXAM: Comprehensive 2D, Doppler, and color-flow Echocardiogram Patient Location: Out-Patient BSA: 2.64 HR: 78 bpm BP: 128/54 mmHg Other Information Study Quality: Good Indications Respiratory failure 2D Dimensions IVSd: 14.41 (7-11mm) LVOT Diam: 21.71 (18-24mm) LVDd: 52.58 mm PWd: 12.66 (7-11mm) Ascending Ao: 36.38 (22-36mm) LVDs: 30.62 (25-40mm) Aortic Root: 34.10 mm Volumes Left Atrial Volume (Systole) LA ESV Index: 19.10 mL/m2 Aortic Valve AoV Peak Morris.: 1.08 m/s AO Peak Gr.: 4.63 mmHg LVOT Max P.98 mmHg AO Mean Gr.: 2.72 mmHg LVOT Mean P.83 mmHg LVOT Max V: 1.00 m/s AO V2 VTI: 19.82 cm LVOT Mean V: 0.62 m/s JENI (VTI): 3.64 cm2 LVOT V1 VTI: 19.49 cm Mitral Valve E/A Ratio: 1.39 [place] [address] 2 D/M-MODE ECHOCARDIOGRAM Name: TANIA SIMON Room: [facility]#: [id number] Admission: 12/22/20 Attend Phys: Mor Martinez MD Discharge: Date of : 64 Date of Service: 12/22/20 1347 Report #: [id number] MV Decel. Time: 176.12 ms MV E Max Morris.: 0.78 m/s MV PHT: 51.07 ms MVA (PHT): 4.31 cm2 TDI E/Lateral E': 7.09 E/Medial E': 9.75 Medial E' Morris.: 0.08 m/s Lateral E' Morris.: 0.11 m/s Pulmonary Valve PV Peak Morris.: 0.77 m/s PV Peak Gr.: 2.37 mmHg Tricuspid Valve RAP Estimate: 5.00 mmHg TR Peak Gr.: 31.61 mmHg RVSP: 36.61 mmHg PA Pressure: 36.61 mmHg Left Ventricle The left ventricle is normal size. There is normal LV segmental wall motion. Mild concentric left ventricular hypertrophy. Left ventricular systolic function is normal. LVEF is 55-60%. Transmitral Doppler flow pattern suggests impaired LV relaxation. Right Ventricle The right ventricle is normal size. The right ventricular systolic function is normal. Atria The left atrium size is normal. The right atrium size is normal. Aortic Valve The aortic valve is normal in structure. No aortic regurgitation is present. There is no aortic valvular stenosis. Mitral Valve The mitral valve is normal in structure. There is no mitral valve regurgitation noted. No evidence of mitral valve stenosis. Tricuspid Valve The tricuspid valve is normal in structure. Mild tricuspid regurgitation. The RVSP is 35-40 mmHg. Pulmonic Valve The pulmonary valve is normal in structure. [place] [address] 2 D/M-MODE ECHOCARDIOGRAM Name: TANIA SIMON Isi Room: [facility]#: [id number] Admission: 12/22/20 Attend Phys: Mor Martinez MD Discharge: Date of : 64 Date of Service: 12/22/20 1347 Report #: [id number] valvular regurgitation. Great Vessels The aortic root is normal in size. IVC is normal in size and collapses >50% with inspiration. Pericardium There is no pericardial effusion. <Conclusion> The left ventricle is normal size. Mild concentric left ventricular hypertrophy. Left ventricular systolic function is normal. LVEF is 55-60%. Transmitral Doppler flow pattern suggests impaired LV relaxation. Mild tricuspid regurgitation. The RVSP is 35-40 mmHg. IVC is normal in size and collapses >50% with inspiration. <ELECTRONICALLY SIGNED> By: Christophe Salomon MD, FACC 12/22/20 1347 134 134 Christophe Salomon MD, FACC /INF
== END ==
LOC: M.CRD 12:36
PROVIDERS: ATTEND Internal Medicine Critical Care Medicine
DX: I07.1 Rheumatic tricuspid insufficiency (principal); I26.09 Other pulmonary embolism with acute cor pulmonale; J96.01 Acute respiratory failure with hypoxia

== ENCOUNTER → 2021-03-11 | Outpatient (CLI) | payer BC ==
--- NOTE | 2021-03-24 19:29 | PF ---
[place] [address] PULMONARY FUNCTION REPORT Name: TANIA SIMON Room: [facility]#: [id number] Admission: 03/11/21 Attend Phys: Mor Martinez MD Discharge: Date of : 64 Report #: [id number] THIS REPORT FOR: cc: Garrett Casiano Adam J DO Pervez, Adeel MD ~ DATE OF VISIT: 03/11/2021 PULMONARY FUNCTION TEST The FEV1/FVC ratio is normal at 83% with an FVC normal at 84%. The FEV1 is also normal at 92% and the FEF 25/75 is normal at 142%. After the administration of a bronchodilator, there is no significant increase in any of these values. The patient's post-bronchodilator FEV1 is noted to be 3.91 liters. The total lung capacity is normal at 87% with a residual volume normal at 91%. The DLCO as adjusted for hemoglobin is mildly decreased to 72%. IMPRESSION: 1. Normal spirometry. 2. Normal lung volumes. 3. Mild reduction in DLCO as adjusted for hemoglobin to 72%. <ELECTRONICALLY SIGNED> By: Mor Martinez MD 03/24/21 [id number] 1953Aarnold Martinez MD /nt
== END ==
LOC: M.ULTRA 08:49
PROVIDERS: ATTEND Internal Medicine Critical Care Medicine
DX: I82.403 Acute embolism and thrombosis of unspecified deep veins of lower extremity, bilateral (principal); J45.30 Mild persistent asthma, uncomplicated; Z86.16 Personal history of COVID-19

== ENCOUNTER → 2021-03-30 | Outpatient (CLI) | payer BC | LOC: M.RAD 10:46 | PROVIDERS: ATTEND Internal Medicine Critical Care Medicine | DX: I26.09 Other pulmonary embolism with acute cor pulmonale (principal); M47.814 Spondylosis without myelopathy or radiculopathy, thoracic region; M25.78 Osteophyte, vertebrae ==